=== PATIENT | female | born 1975 | race Caucasian/White ===

== ENCOUNTER → 2023-06-30 | Outpatient (CLI) | payer BC, SELFPAY ==
--- OUTSIDE RECORDS SUMMARY | 2023-06-30 12:05 | XMS RPT_ITS | CCD ---
Author Name Unknown Address [address] [place] [address] Organization [facility] Care Team Providers Care Chemical Test Engineer Name Role Phone PHYSICIAN, NONE Primary Care Physician Unavailab le PHYSICIAN, NONE Primary Care Unavailable KIMBERLY PINA MD Attending Unavailable PHYSICIAN, NONE Primary Care Unavailable KIMBERLY PINA MD Attending Unavailable PHYSICIAN, NONE Primary Care Unavailable KIMBERLY PINA MD Attending Unavailable KIMBERLY PINA MD Attending Unavailable PHYSICIAN, NONE Primary Care Unavailable PHYSICIAN, NONE Primary Care Unavailable KIMBERLY PINA MD Attending Unavailable PHYSICIAN, NONE Primary Care Unavailable KIMBERLY PINA MD Attending Unavailable Anuel Mcgovern MD Unavailable [facility]icians Primary Care Provider Unav ailable Rowena CREW CLERK - Kelsey MARK Unavailable Aleksandra CHAKRABORTY - Kylah MARK Unavailable Kylah Urias APRN, CNP Unavailable [phone] ANUEL MCGOVERN Attending Unavailable KIMBERLY PINA Referring Unavailable ANUEL MCGOVERN Attending Unavailable KELSEY RIVAS Attending Unavailable [facility] Primary Care Unavailable KYLAH BERG Attending Unavailable [facility] Primary Care Unavailable ANUEL MCGOVERN Admitting Unavailable ANUEL MCGOVERN Attending Unavailable [facility] Primary Care Unavailable Medications Current Medications Medication Drug Class(es) Dates Sig (Normalized) Sig (Original) acetaminophen 500 mg oral tablet (4 sources) Start: 01-06-2023 End: 01-16-2023 take 1 tablet by mouth every six hours as needed for pain acetaminophen (Tylenol Extra Strength) 500 MG tablet Take 1 tablet (500 mg) by mouth every 6 hours as needed for mild pain (1-3) for up to 10 days. 30 tablet 0 01/06/2023 01/16/2023 Active Completed/Discontinued Medications Medication Drug Class(es) Dates Sig (Normalized) Sig (Original) ALPRAZolam 0.25 mg disintegrating oral tablet (1 source) Benzodiazepine Start: 01-06-2023 End: 01-06-2023 ALPRAZolam (Xanax) disintegrating tablet 0.25 mg calcium chloride 0.0014 meq/ml / potassium chloride 0.004 meq/ml / sodium chloride 0.103 meq/ml / sodium lactate 0.028 meq/ml injectable solution (2 sources) Start: 01-06-2023 End: 01-06-2023 lactated ringers infusion 1 ml diphenhydrAMINE hydrochloride 50 mg/ml cartridge (1 source) Histamine-1 Receptor Antagonist Start: 01-06-2023 End: 01-06-2023 diphenhydrAMINE (BENADryl) injection 12.5 mg famotidine 20 mg oral tablet (1 source) Histamine-2 Receptor Antagonist Start: 01-06-2023 End: 01-06-2023 famotidine (Pepcid) tablet 20 mg 2 ml fentaNYL 0.05 mg/ml injection (2 sources) Opioid Agonist Start: 01-06-2023 End: 01-06-2023 fentaNYL (Sublimaze) injection 50 mcg Problems Problem Classification Problem Date Documented Date Episodic/Chronic Inflammatory diseases of female pelvic organs (1 source) Bacterial vaginosis; Translations: [Acute vaginitis] 03-30-2023 Episodic Menstrual disorders (4 sources) Menometrorrhagia; Translations: [Excessive and frequent menstruation with irregular cycle] Onset: 01-06-2023 01-06-2023 Chronic Other female genital disorders (2 sources) Abnormal uterine and vaginal bleeding, unspecified; Translations: [Abnormal uterine and vaginal bleeding, unspecified] Onset: 09-20-2022 Chronic Other female genital disorders (2 sources) Postcoital and contact bleeding; Translations: [Postcoital and contact bleeding] Onset: 04-27-2022 Chronic Other nervous system disorders (1 source) Postoperative pain ; Translations: [Other acute postprocedural pain] 01-06-2023 Episodic Other nervous system disorders (2 sources) Other acute postprocedural pain; Translations: [Other acute postprocedural pain] Onset: 01-06-2023 Episodic Residual codes; unclassified (1 source) Postoperative state; Translations: [Other specified postprocedural states] 01-19-2023 Episodic Residual codes; unclassified (2 sources) Other specified postprocedural states; Translations: [Other specified postprocedural states] Onset: 01-19-2023 Episodic Unclassified (2 sources) Post-op Visit; Translations: [Post-op Visit] Onset: 03-29-2023 Unclassified (2 sources) New Patient; Translations: [New Patient] Onset: 10-13-2022 Results Test Name Value Interpretation Reference Range Facil ity Vital Signs Date Time Vital Sign Value Performing Clinician Faci lity 01-19-2023 11:30-0400 Body height 172.7 cm Kylah Berg APRN [employer] Work Phone: [employer] 01-19-2023 11:30-0400 Body mass index (BMI) [Ratio] 45.31 kg/m2 Kylah Berg CREW CLERK - LOAN CLERK Work Phone: [employer] 01-19-2023 11:30-0400 Body weight 135.17 kg Kylah Aleksandra CREW CLERK - LOAN CLERK Work Phone: [employer] 01-19-2023 11:30-0400 Diastolic blood pressure 88 mm[Hg] Kylah Berg CREW CLERK - LOAN CLERK Work Phone: [employer] 01-19-2023 11:30-0400 Heart rate 101 /min Kylah Berg APRN - LOAN CLERK Work Phone: [employer] 01-19-2023 11:30-0400 Systolic blood pressure 127 mm[Hg] Kylahcatherine Berg CREW CLERK [employer] Work Phone: [employer] 01-06-2023 16:30-0400 Diastolic blood pressure 41 mm[Hg] Anuel Mcgovern MD Work Phone: [employer] 01-06-2023 16:30-0400 Heart rate 58 /min Anuel Mcgovern MD Work Phone: [employer] 01-06-2023 16:30-0400 SaO2% (BldA) [Mass fraction] 92 % Anuel Mcgovern MD Work Phone: [employer] 01-06-2023 16:30-0400 Systolic blood pressure 97 mm[Hg] Anuel Mcgovern MD Work Phone: [facility] 01-06-2023 13:45-0400 Respiratory rate 20 /min Anuel Mcgovern MD Work Phone: [facility] 01-06-2023 13:30-0400 Body temperature 97 [degF] Anuel Mcgovern MD Work Phone: [facility] [employer] 01-06-2023 10:21-0400 Body height 172.7 cm Anuel Mcgovern MD Work Phone: [facility] 01-06-2023 10:21-0400 Body mass index (BMI) [Ratio] 45.61 kg/m2 Anuel Mcgovern MD Work Phone: [facility] 01-06-2023 10:21-0400 Body weight 136.08 kg Anuel Mcgovern MD Work Phone: [facility] 09-20-2022 16:30-0400 Diastolic Blood Pressure Non-Invasive 71 1 KIMBERLY PINA MD [facility] 09-20-2022 16:30-0400 Heart rate 66 /min KIMBERLY PINA MD [facility] 09-20-2022 16:30-0400 Respiratory rate 14 /min KIMBERLY PINA MD [facility] 09-20-2022 16:30-0400 Systolic Blood Pressure Non-Invasive 124 1 KIMBERLY PINA MD [facility] 09-20-2022 16:01-0400 Diastolic Blood Pressure Non-Invasive 61 1 KIMBERLY PINA MD [facility] 09-20-2022 16:01-0400 Heart rate 62 /min KIMBERLY PINA MD [facility] 09-20-2022 16:01-0400 Respiratory rate 16 /min KIMBERLY PINA MD [facility] 09-20-2022 16:01-0400 Systolic Blood Pressure Non-Invasive 101 1 KIMBERLY PINA MD [facility] 09-20-2022 15:50-0400 Diastolic Blood Pressure Non-Invasive 65 1 KIMBERLY PINA MD [facility] 09-20-2022 15:50-0400 Heart rate 58 /min KIMBERLY PINA MD [facility] 09-20-2022 15:50-0400 Respiratory rate 13 /min KIMBERLY PINA MD [facility] 09-20-2022 15:50-0400 Systolic Blood Pressure Non-Invasive 97 1 KIMBERLY PINA MD [facility] 09-20-2022 14:49-0400 Body temperature 96.98 [degF] KIMBERLY PINA MD [facility] 09-20-2022 14:35-0400 Respiratory Rate - Anes 20 br/min KIMBERLY PINA MD [facility] 09-20-2022 14:30-0400 Respiratory Rate - Anes 20 br/min KIMBERLY PINA MD [facility] 09-20-2022 14:25-0400 Respiratory Rate - Anes 17 br/min KIMBERLY PINA MD [facility] 09-20-2022 14:05-0400 temperature 96.8 [degF] KIMBERLY PINA MD [facility] 09-20-2022 13:53-0400 temperature 96.8 [degF] KIMBERLY PINA MD [facility] 09-20-2022 11:29-0400 Blood Pressure Cuff Size KIMBERLY PINA MD [facility] 09-20-2022 11:29-0400 Blood Pressure Location KIMBERLY PINA MD [facility] 09-20-2022 11:29-0400 Blood Pressure Method KIMBERLY PINA MD [facility] 09-20-2022 11:29-0400 Body height 172.7 cm KIMBERLY PINA MD [facility] 09-20-2022 11:29-0400 Body temperature 98.42 [degF] KIMBERLY PINA MD [facility] 09-20-2022 11:29-0400 Body weight 122.7 kg KIMBERLY PINA MD [facility] 09-20-2022 11:29-0400 Body weight 41.14 kg/m2 KIMBERLY PINA MD [facility] 09-20-2022 11:29-0400 Heart rate 87 /min KIMBERLY PINA MD [facility] 09-16-2022 11:06-0400 Blood Pressure Location KIMBERLY PINA MD [facility] 09-16-2022 11:06-0400 Body height 172.7 cm KIMBERLY PINA MD [facility] 09-16-2022 11:06-0400 Body weight 134.1 kg KIMBERLY PINA MD [facility] 09-16-2022 11:06-0400 Body weight 44.96 kg/m2 KIMBERLY PINA MD [facility] 09-16-2022 11:06-0400 Diastolic Blood Pressure Non-Invasive 78 1 KIMBERLY PINA MD [facility] 09-16-2022 11:06-0400 Heart rate 82 /min KIMBERLY PINA MD [facility] 09-16-2022 11:06-0400 Respiratory rate 20 /min KIMBERLY PINA MD [facility] 09-16-2022 11:06-0400 Systolic Blood Pressure Non-Invasive 130 1 KIMBERLY PINA MD [facility] Encounters Encounter Date Encounter Type Care Provider Facility Start: 03-30-2023 Telephone encounter Kelsey mcdowell CREW CLERK - LOAN CLERK Work Phone: [facility] Start: 03-29-2023 End: 03-29-2023 ambulatory KELSEY RIVAS [facility] Start: 03-21-2023 Telephone encounter Kylah khan CREW CLERK - LOAN CLERK Work Phone: [facility] Start: 01-19-2023 End: 01-19-2023 ambulatory KYLAH BERG [facility] Start: 01-19-2023 End: 01-19-2023 Postop follow up visit related to original px Kylah Berg CREW CLERK - LOAN CLERK Work Phone: [facility] Procedures Date Procedure Procedure Detail Performing Clinician Start: 01-06-2023 End: 01-06-2023 Laps total hysterect 250 gm/< w/rmvl tube/ovary Anuel Mcgovern MD Work Phone: Start: 01-06-2023 ABO and Rh group [Ty pe] in Blood by Confirmatory method Anuel Mcgovern MD Work Phone: Start: 01-06-2023 Urine test visual color cmprsn meths Micha Davies DO Work Phone: Start: 01-06-2023 Blood count complete automated Anuel Mcgovern MD Work Phone: Start: 01-06-2023 Blood typing serologic abo Anuel Mcgovern MD Work Phone: Start: 05-23-2009 Appendectomy KIMBERLY OLIVA MD Hysteroscopy KIMBERLY PINA MD Tonsillectomy KIMBERLY Mcdowell Uterine leiomyoma (disorder) KIMBERLY PINA MD Plan of Treatment Date Care Activity Detail Author Start: 2027 Zoster Vaccines (1 of 2) Zoster Vaccines (1 of 2) [facility] Start: 03-23-2023 End: 03-23-2023 Patient encounter procedure 03/23/2023 11:30 AM EDT Office Visit [facility] [address] [place] [address] Kylah Berg, CREW CLERK - LOAN CLERK [address] [place], [place] [id number] [facility] Start: 01-21-2023 Influenza vaccination Influenza Vaccine (#1) [facility] Start: 05-04-2021 COVID-19 Vaccine (3 - Booster for Pfizer series) COVID-19 Vaccine (3 - Booster for Pfizer series) [facility] Start: 05-04-2021 COVID-19 Vaccine (5 - Pfizer series) COVID-19 Vaccine (5 - Pfizer series) [facility] Start: 2017 Screening for malignant neoplasm of breast Mammogram [facility] Start: 2007 Screening for malignant neoplasm of cervix [facility] Start: 1998 Screening for malignant neoplasm of cervix Pap Smear [facility] Start: 1996 DTaP/Tdap/Td Vaccines (1 - Tdap) DTaP/Tdap/Td Vaccines (1 - Tdap) [facility] Start: 1995 Diabetes mellitus screening Diabetes Screening [facility] Start: 1995 Hepatitis C screening Hepatitis C Screening [facility] Start: 1989 Depression Screening Depression Screening [facility] Start: 1978 MMR Vaccines (1 of 1 - Standard series) MMR Vaccines (1 of 1 - Standard series) [facility] Start: 1977 Hepatitis B Vaccines (1 of 3 - 3-dose series) Hepatitis B Vaccines (1 of 3 - 3-dose series) [facility] Start: 1977 HIV screening HIV Screening [facility] Start: 1977 Lipid panel Lipid Panel [facility] Start: 1977 Screening for malignant neoplasm of colon [facility] Tissue exam [facility] Work Phone: Payers Date Payer Category Payer Unknown ANTHEM [employer] S [employer]M [employer] [id number] 2023-Present [address] [place] [address] Commercial [id number] 2023 Unknown [id number] 2022 Private Health Insurance [id number] 2022 Private Health Insurance [id number] 2022 Private Health Insurance [id number] 2021 Private Health Insurance [id number] 1977 Unknown [id number] Unknown [id number] Unknown [id number] Unknown [id number] Unknown [id number] 1975 Unknown [id number] Social History Date Type Detail Facility Start: 10-13-2020 End: 10-12-2022 Never smoked tobacco (finding) [facility] Start: 10-12-2022 Tobacco use and exposure Smokeless tobacco non-user [facility] Start: 01-06-2023 End: 01-19-2023 Alcohol intake Current drinker of alcohol (finding) [facility] Start: 01-06-2023 End: 01-19-2023 History of Social function [facility] Start: 01-06-2023 End: 01-19-2023 Tobacco use panel [facility] Start: 12-31-2022 Alcohol Comment socially [facility] Start: 1975 Sex Assigned At Not on file S [facility] Start: 12-27-2022 End: 01-19-2023 Exposure to SARS-CoV-2 (event) Not sure [facility] Functional Status Date Assessment Result Facility 09-20-2022 Functional Status Activity Statu s ADL Up to chair [facility] 09-20-2022 Functional Status ID band on, Bed in low position, Wheels locked, Safety level maintained [facility] 09-20-2022 Functional Status Maintained [facility] 09-16-2022 Functional Status Sensory Deficits None A [facility] Mental Status Date Assessment Result Facility 09-20-2022 Mental Status Orientation Oriented x 4 [facility] 09-20-2022 Mental Status [facility] Clinical Notes 07-24-2021 to 03-30-2023 Telephone Encounter - MYLENE Ku CNP - 03/30/2023 2:37 PM ESTTelephone Encounter - MYLENE Ku CNP - 03/30/2023 2:37 PM ESTTelephone Encounter - Mj Guidry - 03/21/2023 11:06 AM EDT Note Date & Type Note Facility 03-30-2023 Telephone encounter Note Called patient with positive BV results. Prescribed Flagyl and sent to her pharmacy. Patient verbalizes understanding [facility] 03-30-2023 Miscellaneous Notes Called patient with positive BV results. Prescribed Flagyl and sent to her pharmacy. Patient verbalizes understanding documented in this encounter [facility] 03-22-2023 Telephone encounter Note Patient scheduled with kylah [facility] 03-22-2023 Miscellaneous Notes Patient scheduled with kylah Please have patient see kylah or me. thanks Pt states a little bit of pain on left side during intercourse. Bleeding during intercourse with intercourse being stopped. Pt states for a couple hours after intercourse pt wiped blood and had little blood on pads for that day only. Pt states just little cramping now. Patient calling stating that she experienced bleeding and a little pain after having intercourse for the first time since her total hysterectomy on January 06. Please call back and advise pt at [phone], thanks documented in this encounter [facility] 03-21-2023 Telephone encounter Note Please have patient see kylah or me. thanks [employer] Work Phone: 03-21-2023 Miscellaneous Notes Please have patient see kylah or me. thanks Pt states a little bit of pain on left side during intercourse. Bleeding during intercourse with intercourse being stopped. Pt states for a couple hours after intercourse pt wiped blood and had little blood on pads for that day only. Pt states just little cramping now. Patient calling stating that she experienced bleeding and a little pain after having intercourse for the first time since her total hysterectomy on January 06. Please call back and advise pt at [phone], thanks documented in this encounter [facility] 03-21-2023 Telephone encounter Note Pt states a little bit of pain on left side during intercourse. Bleeding during intercourse with intercourse being stopped. Pt states for a couple hours after intercourse pt wiped blood and had little blood on pads for that day only. Pt states just little cramping now. [facility] 03-21-2023 Telephone encounter Note Patient calling stating that she experienced bleeding and a little pain after having intercourse for the first time since her total hysterectomy on January 06. Please call back and advise pt at [phone], thanks [facility] 01-19-2023 History of Presen t illness Narrative @[email or web address]@ Chief Complaint Patient presents with Post-op Visit 2 weeks post op, slight discomfort when twisting History of the Present Illness: Shani Elias is a 47 y.o. who presents to the office for post-operative evaluation. She underwent ROBOTIC ASSISTED TOTAL LAPAROSCOPIC HYSTERECTOMY, BILATERAL SALPINGO-OOPHORECTOMY 29896 - KS LAPS TOTAL HYSTERECT 250 GM/< W/RMVL TUBE/OVARY on 01/06/23 and final pathology showed: Final Diagnosis UTERUS, CERVIX, BILATERAL FALLOPIAN TUBES AND OVARIES, HYSTERECTOMY WITH BILATERAL SALPINGO-OOPHORECTOMY: -CERVIX WITH BACKGROUND ACUTE AND CHRONIC CERVICITIS - PROLIFERATIVE ENDOMETRIUM -BENIGN BILATERAL FALLOPIAN TUBES AND OVARIES at 1642 Interval History Since her surgery she has been doing well and is without complaints. She denies fevers, chills, nausea, vomiting, bowel or bladder dysfunction. Pain is well controlled, not taking anything for pain. Has mild discomfort when twisting, not worsening. No drainage from incisions. No abnormal vaginal bleeding or discharge. Has mild bloating and flatus, LBM this morning, normal, taking prn Colace and Miralax. Has occasional hot flashes, did not have prior to surgery, no changes in mood. Pt would like work release with restrictions with driving, currently working from home. Past Medical History: Diagnosis Date Rash BLE's karma rash per patient Past Surgical History: Procedure Laterality Date APPENDECTOMY HYSTEROSCOPY LAPAROSCOPIC TOTAL HYSTERECTOMY (HISTORICAL) TONSILLECTOMY @MEDED@ No Known Allergies Review of Systems: As per the HPI, otherwise negative Vitals: 01/19/23 1130 BP: 127/88 Pulse: 101 Body mass index is 45.31 kg/m . Physical Exam Constitutional: Appearance: Normal appearance. HENT: Head: Normocephalic. Pulmonary: Effort: Pulmonary effort is normal. Abdominal: Palpations: Abdomen is soft. Comments: Incisions well approximated, negative for erythema, drainage, warmth, induration, signs of infection. Genitourinary: Comments: Deferred. Skin: General: Skin is warm and dry. Neurological: General: No focal deficit present. Mental Status: She is alert and oriented to person, place, and time. Psychiatric: Mood and Affect: Mood normal. Behavior: Behavior normal. Assessment/Plan: 47 y.o. s/p ROBOTIC ASSISTED TOTAL LAPAROSCOPIC HYSTERECTOMY, BILATERAL SALPINGO-OOPHORECTOMY 81909 - [place] LAPS TOTAL HYSTERECT 250 GM/< W/RMVL TUBE/OVARY for Excessive and frequent menstruation with irregular cycle. Doing well from a post-operative standpoint. Post-operative instructions reviewed. Patient was given a copy of the pathology report for her records. If hot flashes continue, pt to either call our office or primary level vial inspector and tester office for HRT. Pt denies estrogen positive cancers, liver disease, CHD, stroke, smoking, being on blood thinners, active or history of DVT or any type of clot or clotting disorder. Can try OTC Gas-X for bloating/flatus. Call office if no improvement. Work release/restrictions written, signed and given to pt. The patient had an opportunity to ask questions, all of which were answered to the best of my ability. She is in agreement with the above noted plan. Follow-up with primary CLARIFIER OPERATOR for annual well woman exams. documented in this encounter [facility] 01-06-2023 Note Formatting of this n ote might be different from the original. Discharge instructions gone over with pt and family. Verbalized understanding. All questions answered. [facility] 01-06-2023 Miscellaneous Notes Discharge instructions gone over with pt and family. Verbalized understanding. All questions answered. Pt ambulated to bathroom with steady gait. Unable to void. Date of surgery 01/06/2023 Preoperative diagnosis pelvic pain, mental menorrhagia, morbid obesity Postop diagnosis same Procedure robotic hysterectomy BSO Surgeon Mcgovern Anesthesia General Description of operation Patient identified brought to the operating room and after ministration of general anesthetic underwent abdominal perineal vaginal prep and draped in the low lithotomy position and using the yellowfin stirrups. The legs were carefully placed to avoid any nerve injury. Compression stockings on and running. Timeout was performed antibiotics given Alvarez catheter placed in the bladder manipulator and the uterus with a Christiano ring around the cervix. Using an 11 blade a small incision was made in the left upper quadrant using the Baidu system abdominal cavity is entered under direct vision insufflated with CO2 and under direct vision blunt da Aniya ports were placed across the abdomen. Trendelenburg was then used to displace about about the pelvis. The round ligaments were coagulated and divided the anterior and posterior leaves of the broad ligament the ureters identified the ovarian vessels were skeletonized above the ureters coagulated with the bipolar cautery and divided. The bladder was dissected inferiorly allowing the uterine vessels be skeletonized coagulated and divided as were the upper cardinal ligament down to the top of the ring. Colpotomy incision made on top of the ring and the uterus cervix tubes and ovaries removed out through the vagina the cuff was then closed using a running 0 V-Loc suture and the pelvis was copiously irrigated. Hemostasis was obtained Allis was removed from the abdominal cavity the da Aniya undocked the trocars removed and the defects and skin closed subcuticular 4-0 Monocryl and Dermabond. The Alvarez was removed 600 cc of clear urine and she was taken to cover room in stable condition by anesthesia with all sponges needles and instruments be reported as correct to the surgeon. Date: 01/06/2023 Location: [facility] OR Name: Shani Elias, : 1975, Diagnosis Pre-op Diagnosis * Excessive and frequent menstruation with irregular cycle [N92.1] Morbid obesity Post-op Diagnosis * Excessive and frequent menstruation with irregular cycle [N92.1] Procedures ROBOTIC ASSISTED TOTAL LAPAROSCOPIC HYSTERECTOMY, BILATERAL SALPINGO-OOPHORECTOMY 32979 - [place] LAPS TOTAL HYSTERECT 250 GM/< W/RMVL TUBE/OVARY Surgeons * Anuel Mcgovern - Primary Procedure Summary Anesthesia: General ASA: III Estimated Blood Loss: 30 mL Drains: Urethral Catheter 16 Fr. (Active) Specimens ID Source Type Tests Collected By Collected At Frozen? Priority Lab ID 1 Uterus Tissue TISSUE EXAM Anuel Mcgovern MD 01/06/23 1255 Description: UTERUS, CERVIX, BILATERAL TUBES AND OVARIES Comment: 129 GRAMS Staff: Color Making Supervisor: Tania Vargas RN Scrub Person: Gil Guzmanadiel Findings: same Complications: None; patient tolerated the procedure well. Specimens Collected: Order Name Source Comment Collection Info Order Time CBC (HEMOGRAM) Blood, Venous Collected By: Nabila Smiley RN 01/06/2023 10:14 AM BLOOD TYPE AND SCREEN GEL Blood, Venous HOLD. Specimen is valid for 3 days - nurse to verify valid specimen Collected By: Nabila Smiley RN 01/06/2023 10:14 AM HCG QUALITATIVE URINE Urine, Clean Catch Discontinue this order if: 1. patient is older than 55 years old 2. has had a prior hysterectomy 3. today's surgery is for treatment of known or suspected ectopic or loss. 4. patient has a known intrauterine but this is a needed surgery. 01/06/2023 10:14 AM POTASSIUM WITH MG REFLEX For patients on dialysis to draw potassium day of surgery 01/06/2023 10:14 AM PROTHROMBIN TIME If patient on coumadin within 4 days prior. 01/06/2023 10:14 AM TISSUE EXAM Uterus Pre-op diagnosis: Excessive and frequent menstruation with irregular cycle [N92.1] Collected By: Anuel Mcgovern MD 01/06/2023 12:55 PM Wound Class: Class II: Clean-Contaminated Blood Products: None Prophylactic Antibiotics: Procedure appropriate prophylactic antibiotic(s) given within 1 hour of surgical incision (two hours if receiving Vancomycin or flouroquinolone) documented in this encounter [facility] 01-06-2023 Note Patient: Shani martinez Procedure Summary Date: 01/06/23 Room / Location: [address] Operating Room Anesthesia Start: 1208 Anesthesia Stop: Procedure: ROBOTIC ASSISTED TOTAL LAPAROSCOPIC HYSTERECTOMY, BILATERAL SALPINGO-OOPHORECTOMY (Bilateral: Abdomen) Diagnosis: Excessive and frequent menstruation with irregular cycle (Excessive and frequent menstruation with irregular cycle [N92.1]) Surgeons: Anuel Mcgovern MD Responsible Provider: Caden Darnell CRNA Anesthesia Type: general, regional ASA Status: 3 Anesthesia Type: general, regional Vitals Value Taken Time BP 136/79 01/06/23 1330 Temp 36.1 ?C (97 ?F) 01/06/23 1330 Pulse 75 01/06/23 1332 Resp 18 01/06/23 1330 SpO2 99 % 01/06/23 1332 Vitals shown include unvalidated device data. Anesthesia Post Evaluation Patient location during evaluation: PACU Patient participation: complete - patient participated Level of consciousness: sleepy but conscious Pain management: satisfactory to patient Airway patency: patent Dental Injury: no Cardiovascular status: acceptable, blood pressure returned to baseline and hemodynamically stable Respiratory status: acceptable and spontaneous ventilation Hydration status: euvolemic Nausea/Vomiting: controlled No notable events documented. Patient can be discharged once all PACU criteria has been met. [facility] 01-06-2023 Note Patient: Shani martinez Procedure Summary Date: 01/06/23 Room / Location: [address] Operating Room Anesthesia Start: 1208 Anesthesia Stop: Procedure: ROBOTIC ASSISTED TOTAL LAPAROSCOPIC HYSTERECTOMY, BILATERAL SALPINGO-OOPHORECTOMY (Bilateral: Abdomen) Diagnosis: Excessive and frequent menstruation with irregular cycle (Excessive and frequent menstruation with irregular cycle [N92.1]) Surgeons: Anuel Mcgovern MD Responsible Provider: Caden Darnell CRNA Anesthesia Type: general, regional ASA Status: 3 Anesthesia Type: general, regional Vitals Value Taken Time BP 136/79 01/06/23 1330 Temp 36.1 ?C (97 ?F) 01/06/23 1330 Pulse 87 01/06/23 1330 Resp 18 01/06/23 1330 SpO2 100 % 01/06/23 1330 Vitals shown include unvalidated device data. Anesthesia Post Evaluation Patient location during evaluation: PACU Patient participation: complete - patient participated Level of consciousness: sleepy but conscious Pain score: 0 Pain management: satisfactory to patient Multimodal analgesia pain management approach Airway patency: patent Two or more strategies used to mitigate risk of obstructive sleep apnea Cardiovascular status: acceptable and hemodynamically stable Respiratory status: acceptable, face mask and oral airway Hydration status: acceptable No notable events documented. MIPS #[id number] PONV Patient received an inhalational anesthetic (4554F) Patient exhibits three or more risk factors for PONV (4556F) Patient received at leaset 2 prophylactic Rx PONV anti-emtic agents of different classes preop and/or intraop (G9775) MIPS # 424 Perioperative Temperature Management Anesthesia time was 60 minutes or longer (4255F) Anesthesai administered was General (inhalational or TIVA) or Neuraxial block (X0424) At least one body temperature greater than 95.8F/35.5C achieved within the 30 mins immediately prior to or the 15 minutes immediately following anesthesia end time (G9771) MIPS #477 Multimodal Pain Management Not emergent case Patient was administered multimodal pain management (two or more drugs and/or interventions excluding systemic opioids) in the periopeartive period occurring at some time between 6 hours prior to anesthesia start time until discharged from PACU (G2148) MIPS #404 Anesthesiology Smoking Abstinence The patient is not a current smoker (e.g. cigarette, cigar, pipe, e-cigarette/vaping/marijuana) If no stop here (G9644) I completed my handoff to the receiving clinician during which we: 1. Identified the patient 2. Identified the responsible provider 3. Reviewed the pertinent medical history 4. Discussed the surgical course 5. Reviewed intra-op anesthesia management and issues during anesthesia 6. Set expectations for post-procedure period 7. Allowed opportunity for questions and acknowledgement of understanding. [facility] 01-06-2023 Note Formatting of this n ote might be different from the original. Pt ambulated to bathroom with steady gait. Unable to void. [facility] 01-06-2023 Note Airway Date/Time: 01/06/2023 12:15 PM Urgency: scheduled Airway not difficult General Information and Staff Patient location during procedure: Procedural Resident/TIMBER WATCHMAN: Caden Darnell CRNA Performed: TIMBER WATCHMAN Performed by: Caden Darnell CRNA Authorized by: Caden Darnell CRNA Indications and Patient Condition Indications for airway management: anesthesia Sedation level: Asleep Preoxygenated: yes Patient position: sniffing MILS maintained throughout Mask difficulty assessment: 1 - vent by mask Final Airway Details Final airway type: endotracheal airway Successful airway: ETT Cuffed: yes Successful intubation technique: direct laryngoscopy Blade: Klever Blade size: #3 ETT size (mm): 7.0 Cormack-Lehane Classification: grade IIb - view of arytenoids or posterior of glottis only Placement verified by: chest auscultation and capnometry Measured from: lips ETT to lips (cm): 22 Number of attempts at approach: 1 [facility] 01-06-2023 Note Peripheral Block Time Out: 01/06/2023 12:11 PM Patient location during procedure: Procedural Start time: 01/06/2023 12:11 PM End time: 01/06/2023 12:15 PM Reason for block: at surgeon's request and post-op pain management Staffing Performed: TIMBER WATCHMAN Resident/TIMBER WATCHMAN: Erik Arriaga APRN - TIMBER WATCHMAN Preanesthetic Checklist Completed: patient identified, IV checked, site marked, risks and benefits discussed, surgical consent, monitors and equipment checked, pre-op evaluation and timeout performed Region: [place] Primary: TAP (Bupivacaine 0.375%/ Epi 1:200,000/ Dex 0.1mg/mL 40ml divided evenly bilateral) Secondary: Upper rectus (Bupivacaine 0.375%/ Epi 1:200,000/ Dex 0.1mg/mL 20ml divided evenly bilateral) Peripheral Block Patient position: supine Prep: ChloraPrep Patient monitoring: heart rate, state inspector, continuous pulse ox and continuous capnometry O2: ETT/LMA Laterality: bilateral Injection technique: single-shot Guidance: ultrasound guided -image retained in chart, tip of the needle identified by ultraound during injection. Needle Needle: 21G X 110 mm Additional Notes 01/06/2023 12:11 PM Assessment Injection assessment: negative aspiration for heme, no paresthesia on injection and incremental injection Heart rate change: no Slow fractionated injection: yes Required Documentation: Relevant anatomy identified (Nerves, Vessels, Muscles), Negative for blood on aspiration, Local anesthetic injected incrementally with intermittent aspiration every 5 mL, Normal resistance with injection, No EKG changes noted, No symptoms of toxicity, Local anesthetic spread visualized around nerves or plane. and Local anesthetic injected without difficultyMedications qqcEINZCmojbj-yuayytxfmuc-epvdgrm rine (TAP) syringe - Injection 60 mL - 01/06/2023 12:11:00 PM [facility] 01-06-2023 Note HPI: Shani Elias is a pleasant 47 y.o. female who presents in consultation from Dr. Pina for further evaluation and management of abnormal uterine bleeding. She initiallypresented with complaints of heavy menstrual cycles. 4 months of vag bleeding, every day, had amenorrhea for several months then heavy bleeding. Patient states that up to about 2 years ago she had regular menstrual cycles. Then about 2 years ago had several episodes of amenorrhea followed by very heavy vaginal bleeding. She has been bleeding continuously for about 4 months. Sometimes small clots, sometimes spotting. It is associated with some cramping. Passing clots with cramping. Going thru a pad frequently Underwent biopsy in 2021 that was negative. Ultrasound showed an 11 cm uterus. Patient was unable to tolerate progesterone therapy. Patient underwent colposcopy, biopsies and endometrial curettings. ECC was negative, cervical biopsy showed mild dysplasia, endometrial biopsy showed polyps but no evidence of malignancy. 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 Medical History No past medical history on file. Mom had hyst at young age. Surgical History Past Surgical History: Procedure Laterality Date APPENDECTOMY HYSTEROSCOPY Family History Family History Problem Relation Name Age of Onset Colon cancer Neg Hx Breast cancer Neg Hx Ovarian cancer Neg Hx Social History Socioeconomic History Marital status: Unknown Tobacco Use Smoking status: Never Smokeless tobacco: Never Current Medications Current Outpatient Medications Medication Sig Dispense Refill acetaminophen (Tylenol) 325 MG capsule Take by mouth. ibuprofen 600 MG tablet Take 600 mg by mouth. No current facility-administered medications for this visit. Allergies as of 10/13/2022 (No Known Allergies) Review of Systems: Review of Systems Genitourinary: Positive for menstrual problem, pelvic pain and vaginal bleeding. BP 138/84 Pulse 66 Ht 1.727 m (5' 8 ) Wt (!) 137 kg (301 lb 9.6 oz) BMI 45.86 kg/m? Physical Exam: Physical Exam Vitals and nursing note reviewed. Exam conducted with a java support engineer present. Constitutional: Appearance: She is obese. Cardiovascular: Rate and Rhythm: Normal rate and regular rhythm. Pulmonary: Effort: Pulmonary effort is normal. Breath sounds: Normal breath sounds. Abdominal: General: Abdomen is flat. Palpations: Abdomen is soft. Genitourinary: General: Normal vulva. Labia: Right: No lesion. Left: No lesion. Urethra: No urethral lesion. Vagina: Normal. Cervix: Normal. Uterus: Enlarged. Not deviated, not fixed and not tender. Adnexa: Right adnexa normal and left adnexa normal. Skin: General: Skin is warm and dry. Neurological: Mental Status: She is alert. Psychiatric: Mood and Affect: Mood normal. Behavior: Behavior normal. Several pages of reports in the EMR been reviewed to include office notes, pathology reports ultrasound reports from referring physician. ASSESSMENT/PLAN: Diagnosis Plan 1. Menorrhagia with irregular cycle 2. Morbid obesity (HCC) Unable to tolerate hormonal therapy. We did discuss options to include Mirena IUD, endometrial ablation, or hysterectomy. The patient states that the bleeding is interfering with her lifestyle and she would like a definitive treatment. It is also interfering with her ability to do her job. Discussed proceeding with robotic hysterectomy with BSO. We discussed the pros and cons of ovarian preservation. I did discuss the risk of major abdominal surgery to include bleeding infection and damage to other organs. [facility] 01-06-2023 Note H&P reviewed. The pa tient was examined and there are no changes to the H&P. [facility] 01-06-2023 Hospital Discharg e instructions Freda Cool DO - 01/06/2023 1:10 PM EDT Please follow your post operative care instructions given to you by your Gynecologic Oncologist's office at your pre operative visit. Please call the office with questions or concerns and be sure to follow up at your scheduled post operative visit. The following attachments cannot be sent through Care Everywhere.Hysterectomy Discharge Instructions ([place]i)documented in this encounter [facility] 01-06-2023 Note Patient: Shani martinez Procedure Information Date/Time: 01/06/23 1130 Procedure: ROBOTIC ASSISTED TOTAL LAPAROSCOPIC HYSTERECTOMY, BILATERAL SALPINGO-OOPHORECTOMY (Bilateral: Abdomen) Location: [facility] OR [address] [place] [address] Operating Room Surgeons: Anuel Mcgovern MD Relevant Problems No relevant active problems Past Medical History: Past Medical History: No date: Rash Comment: BLE's karma rash per patient Past Surgical History: Past Surgical History: No date: APPENDECTOMY No date: HYSTEROSCOPY No date: TONSILLECTOMY Social History: TOBACCO: reports that she has never smoked. She has never used smokeless tobacco. ETOH: reports current alcohol use. Social History Substance and Sexual Activity Drug Use Never Family History: Family History Problem Relation Name Age of Onset ? Colon cancer Neg Hx ? Breast cancer Neg Hx ? Ovarian cancer Neg Hx Screening: unknown Clinical information reviewed: Tobacco Allergies Meds Med Hx Surg Hx OB Status Fam Hx Soc Hx Physical Exam Airway Mallampati: III TM distance: >3 FB Neck ROM: full Mouth Open: normal Cardiovascular Dental Pulmonary Abdominal Anesthesia Plan patient is NPO appropriate Any family history or previous problems with anesthesia no ASA 3 general and regional Any family history or previous problems with anesthesia no The patient is not a current smoker. YAMILETH Screening Labs: Lab Results Component Value Date WBC 6.5 01/06/2023 HGB 13.4 01/06/2023 HCT 40.6 01/06/2023 MCV 85.0 01/06/2023 PLT 154 01/06/2023 No results found for: NA, K, CL, CO2, BUN, CREATININE, GLUCOSE, CALCIUM, PROT, BILIRUBINFL, ALKPHOS, AST, ALT, EGFR, GLOB Pain Score: Scheduled No echocardiogram results found for the past 14 days No results found for this or any previous visit. [facility] 01-06-2023 Note Formatting of this n ote might be different from the original. Date of surgery 01/06/2023 Preoperative diagnosis pelvic pain, mental menorrhagia, morbid obesity Postop diagnosis same Procedure robotic hysterectomy BSO Surgeon Froilan Anesthesia General Description of operation Patient identified brought to the operating room and after ministration of general anesthetic underwent abdominal perineal vaginal prep and draped in the low lithotomy position and using the yellowfin stirrups. The legs were carefully placed to avoid any nerve injury. Compression stockings on and running. Timeout was performed antibiotics given Alvarez catheter placed in the bladder manipulator and the uterus with a Christiano ring around the cervix. Using an 11 blade a small incision was made in the left upper quadrant using the Baidu system abdominal cavity is entered under direct vision insufflated with CO2 and under direct vision blunt da Aniya ports were placed across the abdomen. Trendelenburg was then used to displace about about the pelvis. The round ligaments were coagulated and divided the anterior and posterior leaves of the broad ligament the ureters identified the ovarian vessels were skeletonized above the ureters coagulated with the bipolar cautery and divided. The bladder was dissected inferiorly allowing the uterine vessels be skeletonized coagulated and divided as were the upper cardinal ligament down to the top of the ring. Colpotomy incision made on top of the ring and the uterus cervix tubes and ovaries removed out through the vagina the cuff was then closed using a running 0 V-Loc suture and the pelvis was copiously irrigated. Hemostasis was obtained Allis was removed from the abdominal cavity the da Aniya undocked the trocars removed and the defects and skin closed subcuticular 4-0 Monocryl and Dermabond. The Alvarez was removed 600 cc of clear urine and she was taken to cover room in stable condition by anesthesia with all sponges needles and instruments be reported as correct to the surgeon. [facility] 01-06-2023 Note Formatting of this n ote is different from the original. Date: 01/06/2023 Location: [facility] OR Name: Shani Elias, : 1975, Diagnosis Pre-op Diagnosis * Excessive and frequent menstruation with irregular cycle [N92.1] Morbid obesity Post-op Diagnosis * Excessive and frequent menstruation with irregular cycle [N92.1] Procedures ROBOTIC ASSISTED TOTAL LAPAROSCOPIC HYSTERECTOMY, BILATERAL SALPINGO-OOPHORECTOMY 04435 - [place] LAPS TOTAL HYSTERECT 250 GM/< W/RMVL TUBE/OVARY Surgeons * Anuel Mcgovern - Primary Procedure Summary Anesthesia: General ASA: III Estimated Blood Loss: 30 mL Drains: Urethral Catheter 16 Fr. (Active) Specimens ID Source Type Tests Collected By Collected At Frozen? Priority Lab ID 1 Uterus Tissue TISSUE EXAM Anuel Mcgovern MD 01/06/23 1255 Description: UTERUS, CERVIX, BILATERAL TUBES AND OVARIES Comment: 129 GRAMS Staff: Color Making Supervisor: Tania Vargas RN Scrub Person: Gil Balderrama Findings: same Complications: None; patient tolerated the procedure well. Specimens Collected: Order Name Source Comment Collection Info Order Time CBC (HEMOGRAM) Blood, Venous Collected By: Nabila Smiley RN 01/06/2023 10:14 AM BLOOD TYPE AND SCREEN GEL Blood, Venous HOLD. Specimen is valid for 3 days - nurse to verify valid specimen Collected By: Nabila Smiley RN 01/06/2023 10:14 AM HCG QUALITATIVE URINE Urine, Clean Catch Discontinue this order if: 1. patient is older than 55 years old 2. has had a prior hysterectomy 3. today's surgery is for treatment of known or suspected ectopic or loss. 4. patient has a known intrauterine but this is a needed surgery. 01/06/2023 10:14 AM POTASSIUM WITH MG REFLEX For patients on dialysis to draw potassium day of surgery 01/06/2023 10:14 AM PROTHROMBIN TIME If patient on coumadin within 4 days prior. 01/06/2023 10:14 AM TISSUE EXAM Uterus Pre-op diagnosis: Excessive and frequent menstruation with irregular cycle [N92.1] Collected By: Anuel Mcgovern MD 01/06/2023 12:55 PM Wound Class: Class II: Clean-Contaminated Blood Products: None Prophylactic Antibiotics: Procedure appropriate prophylactic antibiotic(s) given within 1 hour of surgical incision (two hours if receiving Vancomycin or flouroquinolone) [facility] 01-06-2023 History and physical note HPI: Shani Elias is a pleasant 47 y.o. female who presents in consultation from Dr. Pina for further evaluation and management of abnormal uterine bleeding. She initiallypresented with complaints of heavy menstrual cycles. 4 months of vag bleeding, every day, had amenorrhea for several months then heavy bleeding. Patient states that up to about 2 years ago she had regular menstrual cycles. Then about 2 years ago had several episodes of amenorrhea followed by very heavy vaginal bleeding. She has been bleeding continuously for about 4 months. Sometimes small clots, sometimes spotting. It is associated with some cramping. Passing clots with cramping. Going thru a pad frequently Underwent biopsy in 2021 that was negative. Ultrasound showed an 11 cm uterus. Patient was unable to tolerate progesterone therapy. Patient underwent colposcopy, biopsies and endometrial curettings. ECC was negative, cervical biopsy showed mild dysplasia, endometrial biopsy showed polyps but no evidence of malignancy. 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 Medical History No past medical history on file. Mom had hyst at young age. Surgical History Past Surgical History: Procedure Laterality Date APPENDECTOMY HYSTEROSCOPY Family History Family History Problem Relation Name Age of Onset Colon cancer Neg Hx Breast cancer Neg Hx Ovarian cancer Neg Hx Social History Socioeconomic History Marital status: Unknown Tobacco Use Smoking status: Never Smokeless tobacco: Never Current Medications Current Outpatient Medications Medication Sig Dispense Refill acetaminophen (Tylenol) 325 MG capsule Take by mouth. ibuprofen 600 MG tablet Take 600 mg by mouth. No current facility-administered medications for this visit. Allergies as of 10/13/2022 (No Known Allergies) Review of Systems: Review of Systems Genitourinary: Positive for menstrual problem, pelvic pain and vaginal bleeding. BP 138/84 Pulse 66 Ht 1.727 m (5' 8 ) Wt (!) 137 kg (301 lb 9.6 oz) BMI 45.86 kg/m Physical Exam: Physical Exam Vitals and nursing note reviewed. Exam conducted with a java support engineer present. Constitutional: Appearance: She is obese. Cardiovascular: Rate and Rhythm: Normal rate and regular rhythm. Pulmonary: Effort: Pulmonary effort is normal. Breath sounds: Normal breath sounds. Abdominal: General: Abdomen is flat. Palpations: Abdomen is soft. Genitourinary: General: Normal vulva. Labia: Right: No lesion. Left: No lesion. Urethra: No urethral lesion. Vagina: Normal. Cervix: Normal. Uterus: Enlarged. Not deviated, not fixed and not tender. Adnexa: Right adnexa normal and left adnexa normal. Skin: General: Skin is warm and dry. Neurological: Mental Status: She is alert. Psychiatric: Mood and Affect: Mood normal. Behavior: Behavior normal. Several pages of reports in the EMR been reviewed to include office notes, pathology reports ultrasound reports from referring physician. ASSESSMENT/PLAN: Diagnosis Plan 1. Menorrhagia with irregular cycle 2. Morbid obesity (HCC) Unable to tolerate hormonal therapy. We did discuss options to include Mirena IUD, endometrial ablation, or hysterectomy. The patient states that the bleeding is interfering with her lifestyle and she would like a definitive treatment. It is also interfering with her ability to do her job. Discussed proceeding with robotic hysterectomy with BSO. We discussed the pros and cons of ovarian preservation. I did discuss the risk of major abdominal surgery to include bleeding infection and damage to other organs. [facility] 01-06-2023 History and physical note HPI: Shani Elias is a pleasant 47 y.o. female who presents in consultation from Dr. Pina for further evaluation and management of abnormal uterine bleeding. She initiallypresented with complaints of heavy menstrual cycles. 4 months of vag bleeding, every day, had amenorrhea for several months then heavy bleeding. Patient states that up to about 2 years ago she had regular menstrual cycles. Then about 2 years ago had several episodes of amenorrhea followed by very heavy vaginal bleeding. She has been bleeding continuously for about 4 months. Sometimes small clots, sometimes spotting. It is associated with some cramping. Passing clots with cramping. Going thru a pad frequently Underwent biopsy in 2021 that was negative. Ultrasound showed an 11 cm uterus. Patient was unable to tolerate progesterone therapy. Patient underwent colposcopy, biopsies and endometrial curettings. ECC was negative, cervical biopsy showed mild dysplasia, endometrial biopsy showed polyps but no evidence of malignancy. 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 Medical History No past medical history on file. Mom had hyst at young age. Surgical History Past Surgical History: Procedure Laterality Date APPENDECTOMY HYSTEROSCOPY Family History Family History Problem Relation Name Age of Onset Colon cancer Neg Hx Breast cancer Neg Hx Ovarian cancer Neg Hx Social History Socioeconomic History Marital status: Unknown Tobacco Use Smoking status: Never Smokeless tobacco: Never Current Medications Current Outpatient Medications Medication Sig Dispense Refill acetaminophen (Tylenol) 325 MG capsule Take by mouth. ibuprofen 600 MG tablet Take 600 mg by mouth. No current facility-administered medications for this visit. Allergies as of 10/13/2022 (No Known Allergies) Review of Systems: Review of Systems Genitourinary: Positive for menstrual problem, pelvic pain and vaginal bleeding. BP 138/84 Pulse 66 Ht 1.727 m (5' 8 ) Wt (!) 137 kg (301 lb 9.6 oz) BMI 45.86 kg/m Physical Exam: Physical Exam Vitals and nursing note reviewed. Exam conducted with a java support engineer present. Constitutional: Appearance: She is obese. Cardiovascular: Rate and Rhythm: Normal rate and regular rhythm. Pulmonary: Effort: Pulmonary effort is normal. Breath sounds: Normal breath sounds. Abdominal: General: Abdomen is flat. Palpations: Abdomen is soft. Genitourinary: General: Normal vulva. Labia: Right: No lesion. Left: No lesion. Urethra: No urethral lesion. Vagina: Normal. Cervix: Normal. Uterus: Enlarged. Not deviated, not fixed and not tender. Adnexa: Right adnexa normal and left adnexa normal. Skin: General: Skin is warm and dry. Neurological: Mental Status: She is alert. Psychiatric: Mood and Affect: Mood normal. Behavior: Behavior normal. Several pages of reports in the EMR been reviewed to include office notes, pathology reports ultrasound reports from referring physician. ASSESSMENT/PLAN: Diagnosis Plan 1. Menorrhagia with irregular cycle 2. Morbid obesity (HCC) Unable to tolerate hormonal therapy. We did discuss options to include Mirena IUD, endometrial ablation, or hysterectomy. The patient states that the bleeding is interfering with her lifestyle and she would like a definitive treatment. It is also interfering with her ability to do her job. Discussed proceeding with robotic hysterectomy with BSO. We discussed the pros and cons of ovarian preservation. I did discuss the risk of major abdominal surgery to include bleeding infection and damage to other organs. H&P reviewed. The patient was examined and there are no changes to the H&P. Source Note - Anuel Mcgovern MD - 01/06/2023 11:53 AM EDT HPI: Shani Elias is a pleasant 47 y.o. female who presents in consultation from Dr. Pina for further evaluation and management of abnormal uterine bleeding. She initiallypresented with complaints of heavy menstrual cycles. 4 months of vag bleeding, every day, had amenorrhea for several months then heavy bleeding. Patient states that up to about 2 years ago she had regular menstrual cycles. Then about 2 years ago had several episodes of amenorrhea followed by very heavy vaginal bleeding. She has been bleeding continuously for about 4 months. Sometimes small clots, sometimes spotting. It is associated with some cramping. Passing clots with cramping. Going thru a pad frequently Underwent biopsy in 2021 that was negative. Ultrasound showed an 11 cm uterus. Patient was unable to tolerate progesterone therapy. Patient underwent colposcopy, biopsies and endometrial curettings. ECC was negative, cervical biopsy showed mild dysplasia, endometrial biopsy showed polyps but no evidence of malignancy. 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 Medical History No past medical history on file. Mom had hyst at young age. Surgical History Past Surgical History: Procedure Laterality Date APPENDECTOMY HYSTEROSCOPY Family History Family History Problem Relation Name Age of Onset Colon cancer Neg Hx Breast cancer Neg Hx Ovarian cancer Neg Hx Social History Socioeconomic History Marital status: Unknown Tobacco Use Smoking status: Never Smokeless tobacco: Never Current Medications Current Outpatient Medications Medication Sig Dispense Refill acetaminophen (Tylenol) 325 MG capsule Take by mouth. ibuprofen 600 MG tablet Take 600 mg by mouth. No current facility-administered medications for this visit. Allergies as of 10/13/2022 (No Known Allergies) Review of Systems: Review of Systems Genitourinary: Positive for menstrual problem, pelvic pain and vaginal bleeding. BP 138/84 Pulse 66 Ht 1.727 m (5' 8 ) Wt (!) 137 kg (301 lb 9.6 oz) BMI 45.86 kg/m Physical Exam: Physical Exam Vitals and nursing note reviewed. Exam conducted with a java support engineer present. Constitutional: Appearance: She is obese. Cardiovascular: Rate and Rhythm: Normal rate and regular rhythm. Pulmonary: Effort: Pulmonary effort is normal. Breath sounds: Normal breath sounds. Abdominal: General: Abdomen is flat. Palpations: Abdomen is soft. Genitourinary: General: Normal vulva. Labia: Right: No lesion. Left: No lesion. Urethra: No urethral lesion. Vagina: Normal. Cervix: Normal. Uterus: Enlarged. Not deviated, not fixed and not tender. Adnexa: Right adnexa normal and left adnexa normal. Skin: General: Skin is warm and dry. Neurological: Mental Status: She is alert. Psychiatric: Mood and Affect: Mood normal. Behavior: Behavior normal. Several pages of reports in the EMR been reviewed to include office notes, pathology reports ultrasound reports from referring physician. ASSESSMENT/PLAN: Diagnosis Plan 1. Menorrhagia with irregular cycle 2. Morbid obesity (HCC) Unable to tolerate hormonal therapy. We did discuss options to include Mirena IUD, endometrial ablation, or hysterectomy. The patient states that the bleeding is interfering with her lifestyle and she would like a definitive treatment. It is also interfering with her ability to do her job. Discussed proceeding with robotic hysterectomy with BSO. We discussed the pros and cons of ovarian preservation. I did discuss the risk of major abdominal surgery to include bleeding infection and damage to other organs. documented in this encounter [facility] 01-06-2023 Attending History and physical note H&P reviewed. The patient was examined and there are no changes to the H&P. Source Note - Anuel Mcgovern MD - 01/06/2023 11:53 AM EDT HPI: Shani Elias is a pleasant 47 y.o. female who presents in consultation from Dr. Pina for further evaluation and management of abnormal uterine bleeding. She initiallypresented with complaints of heavy menstrual cycles. 4 months of vag bleeding, every day, had amenorrhea for several months then heavy bleeding. Patient states that up to about 2 years ago she had regular menstrual cycles. Then about 2 years ago had several episodes of amenorrhea followed by very heavy vaginal bleeding. She has been bleeding continuously for about 4 months. Sometimes small clots, sometimes spotting. It is associated with some cramping. Passing clots with cramping. Going thru a pad frequently Underwent biopsy in 2021 that was negative. Ultrasound showed an 11 cm uterus. Patient was unable to tolerate progesterone therapy. Patient underwent colposcopy, biopsies and endometrial curettings. ECC was negative, cervical biopsy showed mild dysplasia, endometrial biopsy showed polyps but no evidence of malignancy. 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 Medical History No past medical history on file. Mom had hyst at young age. Surgical History Past Surgical History: Procedure Laterality Date APPENDECTOMY HYSTEROSCOPY Family History Family History Problem Relation Name Age of Onset Colon cancer Neg Hx Breast cancer Neg Hx Ovarian cancer Neg Hx Social History Socioeconomic History Marital status: Unknown Tobacco Use Smoking status: Never Smokeless tobacco: Never Current Medications Current Outpatient Medications Medication Sig Dispense Refill acetaminophen (Tylenol) 325 MG capsule Take by mouth. ibuprofen 600 MG tablet Take 600 mg by mouth. No current facility-administered medications for this visit. Allergies as of 10/13/2022 (No Known Allergies) Review of Systems: Review of Systems Genitourinary: Positive for menstrual problem, pelvic pain and vaginal bleeding. BP 138/84 Pulse 66 Ht 1.727 m (5' 8 ) Wt (!) 137 kg (301 lb 9.6 oz) BMI 45.86 kg/m Physical Exam: Physical Exam Vitals and nursing note reviewed. Exam conducted with a java support engineer present. Constitutional: Appearance: She is obese. Cardiovascular: Rate and Rhythm: Normal rate and regular rhythm. Pulmonary: Effort: Pulmonary effort is normal. Breath sounds: Normal breath sounds. Abdominal: General: Abdomen is flat. Palpations: Abdomen is soft. Genitourinary: General: Normal vulva. Labia: Right: No lesion. Left: No lesion. Urethra: No urethral lesion. Vagina: Normal. Cervix: Normal. Uterus: Enlarged. Not deviated, not fixed and not tender. Adnexa: Right adnexa normal and left adnexa normal. Skin: General: Skin is warm and dry. Neurological: Mental Status: She is alert. Psychiatric: Mood and Affect: Mood normal. Behavior: Behavior normal. Several pages of reports in the EMR been reviewed to include office notes, pathology reports ultrasound reports from referring physician. ASSESSMENT/PLAN: Diagnosis Plan 1. Menorrhagia with irregular cycle 2. Morbid obesity (HCC) Unable to tolerate hormonal therapy. We did discuss options to include Mirena IUD, endometrial ablation, or hysterectomy. The patient states that the bleeding is interfering with her lifestyle and she would like a definitive treatment. It is also interfering with her ability to do her job. Discussed proceeding with robotic hysterectomy with BSO. We discussed the pros and cons of ovarian preservation. I did discuss the risk of major abdominal surgery to include bleeding infection and damage to other organs. [facility] 12-30-2022 Note Patient: Shani martinez Procedure Information Date/Time: 12/30/22 7012 Scheduled providers: Kristen Meyers RN Procedure: PAT OPTIMIZATION CALL Location: [facility] Pre-Admit Testing Relevant Problems No relevant active problems Past Medical History: No past medical history on file. Past Surgical History: Past Surgical History: No date: APPENDECTOMY No date: HYSTEROSCOPY Social History: TOBACCO: reports that she has never smoked. She has never used smokeless tobacco. ETOH: has no history on file for alcohol use. Social History Substance and Sexual Activity Drug Use Not on file Family History: Family History Problem Relation Name Age of Onset ? Colon cancer Neg Hx ? Breast cancer Neg Hx ? Ovarian cancer Neg Hx Screening: unknown Clinical information reviewed: Physical Exam Airway Mallampati: unable to assess Cardiovascular Dental Pulmonary Abdominal Anesthesia Plan Any family history or previous problems with anesthesia ASA 3 general and regional (Chart info-PAT phone call CBC and T&S ordered DOS per surgeon Glucose ordered DOS ) The patient is not a current smoker. ERAS Type Short ERAS YAMILETH Screening Labs: No results found for: WBC, HGB, HCT, MCV, PLT No results found for: NA, K, CL, CO2, BUN, CREATININE, GLUCOSE, CALCIUM, PROT, BILIRUBINFL, ALKPHOS, AST, ALT, EGFR, GLOB No echocardiogram results found for the past 14 days No results found for this or any previous visit. [facility] 10-13-2022 Note HPI: Shani Elias is a pleasant 47 y.o. female who presents in consultation from Dr. Pina for further evaluation and management of abnormal uterine bleeding. She initiallypresented with complaints of heavy menstrual cycles. 4 months of vag bleeding, every day, had amenorrhea for several months then heavy bleeding. Patient states that up to about 2 years ago she had regular menstrual cycles. Then about 2 years ago had several episodes of amenorrhea followed by very heavy vaginal bleeding. She has been bleeding continuously for about 4 months. Sometimes small clots, sometimes spotting. It is associated with some cramping. Passing clots with cramping. Going thru a pad frequently Underwent biopsy in 2021 that was negative. Ultrasound showed an 11 cm uterus. Patient was unable to tolerate progesterone therapy. Patient underwent colposcopy, biopsies and endometrial curettings. ECC was negative, cervical biopsy showed mild dysplasia, endometrial biopsy showed polyps but no evidence of malignancy. 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 No past medical history on file. Mom had hyst at young age. Past Surgical History: Procedure Laterality Date APPENDECTOMY HYSTEROSCOPY Family History Problem Relation Name Age of Onset Colon cancer Neg Hx Breast cancer Neg Hx Ovarian cancer Neg Hx Social History Socioeconomic History Marital status: Unknown Tobacco Use Smoking status: Never Smokeless tobacco: Never Current Outpatient Medications Medication Sig Dispense Refill acetaminophen (Tylenol) 325 MG capsule Take by mouth. ibuprofen 600 MG tablet Take 600 mg by mouth. No current facility-administered medications for this visit. Allergies as of 10/13/2022 (No Known Allergies) Review of Systems: Review of Systems Genitourinary: Positive for menstrual problem, pelvic pain and vaginal bleeding. BP 138/84 Pulse 66 Ht 1.727 m (5' 8 ) Wt (!) 137 kg (301 lb 9.6 oz) BMI 45.86 kg/m? Physical Exam: Physical Exam Vitals and nursing note reviewed. Exam conducted with a java support engineer present. Constitutional: Appearance: She is obese. Cardiovascular: Rate and Rhythm: Normal rate and regular rhythm. Pulmonary: Effort: Pulmonary effort is normal. Breath sounds: Normal breath sounds. Abdominal: General: Abdomen is flat. Palpations: Abdomen is soft. Genitourinary: General: Normal vulva. Labia: Right: No lesion. Left: No lesion. Urethra: No urethral lesion. Vagina: Normal. Cervix: Normal. Uterus: Enlarged. Not deviated, not fixed and not tender. Adnexa: Right adnexa normal and left adnexa normal. Skin: General: Skin is warm and dry. Neurological: Mental Status: She is alert. Psychiatric: Mood and Affect: Mood normal. Behavior: Behavior normal. Several pages of reports in the EMR been reviewed to include office notes, pathology reports ultrasound reports from referring physician. ASSESSMENT/PLAN: Diagnosis Plan 1. Menorrhagia with irregular cycle 2. Morbid obesity (HCC) Unable to tolerate hormonal therapy. We did discuss options to include Mirena IUD, endometrial ablation, or hysterectomy. The patient states that the bleeding is interfering with her lifestyle and she would like a definitive treatment. It is also interfering with her ability to do her job. Discussed proceeding with robotic hysterectomy with BSO. We discussed the pros and cons of ovarian preservation. I did discuss the risk of major abdominal surgery to include bleeding infection and damage to other organs. Total time spent in review of multiple medical records coordination of care and counseling patient was 35 minutes [facility] 09-20-2022 Hospital Discharg e instructions Patient Education 09/20/2022 15:51:59 General Anesthesia, Adult, Care After General Anesthesia, Adult, Care After This sheet gives you information about how to care for yourself after your procedure. Your health care provider may also give you more specific instructions. If you have problems or questions, contact your health care provider. What can I expect after the procedure? After the procedure, the following side effects are common: Pain or discomfort at the IV site. Nausea. Vomiting. Sore throat. Trouble concentrating. Feeling cold or chills. Weak or tired. Sleepiness and fatigue. Soreness and body aches. These side effects can affect parts of the body that were not involved in surgery. Follow these instructions at home: For at least 24 hours after the procedure: Have a responsible adult stay with you. It is important to have someone help care for you until you are awake and alert. Rest as needed. Do not: ?Participate in activities in which you could fall or become injured. ?Drive. ?Use heavy machinery. ?Drink alcohol. ?Take sleeping pills or medicines that cause drowsiness. ?Make important decisions or sign legal documents. ?Take care of children on your own. Eating and drinking Follow any instructions from your health care provider about eating or drinking restrictions. When you feel hungry, start by eating small amounts of foods that are soft and easy to digest (bland), such as toast. Gradually return to your regular diet. Drink enough fluid to keep your urine pale yellow. If you vomit, rehydrate by drinking water, juice, or clear broth. General instructions If you have sleep apnea, surgery and certain medicines can increase your risk for breathing problems. Follow instructions from your health care provider about wearing your sleep device: ?Anytime you are sleeping, including during daytime naps. ?While taking prescription pain medicines, sleeping medicines, or medicines that make you drowsy. Return to your normal activities as told by your health care provider. Ask your health care provider what activities are safe for you. Take hhxf-gmi-lgfgywk and prescription medicines only as told by your health care provider. If you smoke, do not smoke without supervision. Keep all follow-up visits as told by your health care provider. This is important. Contact a health care provider if: You have nausea or vomiting that does not get better with medicine. You cannot eat or drink without vomiting. You have pain that does not get better with medicine. You are unable to pass urine. You develop a skin rash. You have a fever. You have redness around your IV site that gets worse. Get help right away if: You have difficulty breathing. You have chest pain. You have blood in your urine or stool, or you vomit blood. Summary After the procedure, it is common to have a sore throat or nausea. It is also common to feel tired. Have a responsible adult stay with you for the first 24 hours after general anesthesia. It is important to have someone help care for you until you are awake and alert. When you feel hungry, start by eating small amounts of foods that are soft and easy to digest (bland), such as toast. Gradually return to your regular diet. Drink enough fluid to keep your urine pale yellow. Return to your normal activities as told by your health care provider. Ask your health care provider what activities are safe for you. This information is not intended to replace advice given to you by your health care provider. Make sure you discuss any questions you have with your health care provider. Document Released: 08/15/2001 Document Revised: 05/12/2018 Document Reviewed: 12/23/2017 [employer] Patient Education 2020 [employer]. 09/20/2022 14:54:30 Colposcopy, Care After, Focz-fg-Asko Colposcopy, Care After This sheet gives you information about how to care for yourself after your procedure. Your doctor may also give you more specific instructions. If you have problems or questions, contact your doctor. What can I expect after the procedure? If you did not have a tissue sample removed (did not have a biopsy), you may only have some spotting for a few days. You can go back to your normal activities. If you had a tissue sample removed, it is common to have: Soreness and pain. This may last for a few days. Light-headedness. Mild bleeding from your vagina or dark-colored, grainy discharge from your vagina. This may last for a few days. You may need to wear a sanitary pad. Spotting for at least 48 hours after the procedure. Follow these instructions at home: Take xbud-lyr-jrgpsjr and prescription medicines only as told by your doctor. Ask your doctor what medicines you can start taking again. This is very important if you take blood-thinning medicine. Do not drive or use heavy machinery while taking prescription pain medicine. For 3 days, or as long as your doctor tells you, avoid: ?Douching. ?Using tampons. ?Having sex. If you use control (contraception), keep using it. Limit activity for the first day after the procedure. Ask your doctor what activities are safe for you. It is up to you to get the results of your procedure. Ask your doctor when your results will be ready. Keep all follow-up visits as told by your doctor. This is important. Contact a doctor if: You get a skin rash. Get help right away if: You are bleeding a lot from your vagina. It is a lot of bleeding if you are using more than one pad an hour for 2 hours in a row. You have clumps of blood (blood clots) coming from your vagina. You have a fever. You have chills You have pain in your lower belly (pelvic area). You have signs of infection, such as vaginal discharge that is: ?Different than usual. ?Yellow. ?Bad-smelling. You have very pain or cramps in your lower belly that do not get better with medicine. You feel light-headed. You feel dizzy. You pass out (faint). Summary If you did not have a tissue sample removed (did not have a biopsy), you may only have some spotting for a few days. You can go back to your normal activities. If you had a tissue sample removed, it is common to have mild pain and spotting for 48 hours. For 3 days, or as long as your doctor tells you, avoid douching, using tampons and having sex. Get help right away if you have bleeding, very bad pain, or signs of infection. This information is not intended to replace advice given to you by your health care provider. Make sure you discuss any questions you have with your health care provider. Document Released: 10/25/2008 Document Revised: 04/21/2018 Document Reviewed: 01/26/2017 [employer] Patient Education 2020 [employer] 09/20/2022 14:54:30 Hysteroscopy, Care After Hysteroscopy, Care After This sheet gives you information about how to care for yourself after your procedure. Your health care provider may also give you more specific instructions. If you have problems or questions, contact your health care provider. What can I expect after the procedure? After the procedure, it is common to have: Cramping. Bleeding. This can vary from light spotting to menstrual-like bleeding. Follow these instructions at home: Activity Rest for 1 2 days after the procedure. Do not douche, use tampons, or have sex for 2 weeks after the procedure, or until your health care provider approves. Do not drive for 24 hours after the procedure, or for as long as told by your health care provider. Do not drive, use heavy machinery, or drink alcohol while taking prescription pain medicines. Medicines Take fvsx-ber-hltmkig and prescription medicines only as told by your health care provider. Do not take aspirin during recovery. It can increase the risk of bleeding. General instructions Do not take baths, swim, or use a hot tub until your health care provider approves. Take showers instead of baths for 2 weeks, or for as long as told by your health care provider. To prevent or treat constipation while you are taking prescription pain medicine, your health care provider may recommend that you: ?Drink enough fluid to keep your urine clear or pale yellow. ?Take hipe-xxx-fuhtvou or prescription medicines. ?Eat foods that are high in fiber, such as fresh fruits and vegetables, whole grains, and beans. ?Limit foods that are high in fat and processed sugars, such as fried and sweet foods. Keep all follow-up visits as told by your health care provider. This is important. Contact a health care provider if: You feel dizzy or lightheaded. You feel nauseous. You have abnormal vaginal discharge. You have a rash. You have pain that does not get better with medicine. You have chills. Get help right away if: You have bleeding that is heavier than a normal menstrual period. You have a fever. You have pain or cramps that get worse. You develop new abdominal pain. You faint. You have pain in your shoulders. You have shortness of breath. Summary After the procedure, you may have cramping and some vaginal bleeding. Do not douche, use tampons, or have sex for 2 weeks after the procedure, or until your health care provider approves. Do not take baths, swim, or use a hot tub until your health care provider approves. Take showers instead of baths for 2 weeks, or for as long as told by your health care provider. Report any unusual symptoms to your health care provider. Keep all follow-up visits as told by your health care provider. This is important. This information is not intended to replace advice given to you by your health care provider. Make sure you discuss any questions you have with your health care provider. Document Released: 02/27/2014 Document Revised: 04/21/2018 Document Reviewed: 06/07/2017 [employer] Patient Education 2020 [employer]. Follow Up Care 09/15/2022 09:08:37 With:KIMBERLY PINA Address: [address] [place], [place] [id number] [phone] Business (1) When:Within 1 Week(s) [facility] 09-20-2022 Summary of episod e note Discharge Instructions Thank you for allowing [facility] to assist you with your healthcare needs. The following is important discharge information regarding your hospital visit. Your Care Team PHYSICIAN, NONE What to do next Follow Up Appointments Follow Up with KIMBERLY PINA When In 1 week Where: [address] [place] [id number] [phone] Business (1) The Following Activity and Diet Have Been Ordered for You No qualifying data available. No qualifying data available. The Following Equipment Has Been Ordered for You No qualifying data available. Allergies NKA Medications Please ask your primary doctor or pharmacist before taking any other medication not listed, including over the counter drugs, herbal medications, vitamins and or supplements as they may interact with your home medications. What How Much When Instructions Last Dose New acetaminophen (acetaminophen 325 mg oral capsule) 650 Milligram by mouth Every 6 hours Pickup at [id number] New ibuprofen (IBU 600 mg oral tablet) 1 tab(s) by mouth Every 6 hours Pickup at [facility][id number] Pharmacy Information [facility][id number]: [address] [place], [place] [id number] [phone] Please take this list to your next doctor s visit. Bring all medications you take, including over the counter medications, herbals and other supplements with you to your doctor s visit. Patients and families are reminded to discard old lists and to update any records with all medication providers or retail pharmacies. Education Materials General Anesthesia, Adult, Care After This sheet gives you information about how to care for yourself after your procedure. Your health care provider may also give you more specific instructions. If you have problems or questions, contact your health care provider. What can I expect after the procedure? After the procedure, the following side effects are common: Pain or discomfort at the IV site. Nausea. Vomiting. Sore throat. Trouble concentrating. Feeling cold or chills. Weak or tired. Sleepiness and fatigue. Soreness and body aches. These side effects can affect parts of the body that were not involved in surgery. Follow these instructions at home: For at least 24 hours after the procedure: Have a responsible adult stay with you. It is important to have someone help care for you until you are awake and alert. Rest as needed. Do not: ? Participate in activities in which you could fall or become injured. ? Drive. ? Use heavy machinery. ? Drink alcohol. ? Take sleeping pills or medicines that cause drowsiness. ? Make important decisions or sign legal documents. ? Take care of children on your own. Eating and drinking Follow any instructions from your health care provider about eating or drinking restrictions. When you feel hungry, start by eating small amounts of foods that are soft and easy to digest (bland), such as toast. Gradually return to your regular diet. Drink enough fluid to keep your urine pale yellow. If you vomit, rehydrate by drinking water, juice, or clear broth. General instructions If you have sleep apnea, surgery and certain medicines can increase your risk for breathing problems. Follow instructions from your health care provider about wearing your sleep device: ? Anytime you are sleeping, including during daytime naps. ? While taking prescription pain medicines, sleeping medicines, or medicines that make you drowsy. Return to your normal activities as told by your health care provider. Ask your health care provider what activities are safe for you. Take wutj-chz-tlczyde and prescription medicines only as told by your health care provider. If you smoke, do not smoke without supervision. Keep all follow-up visits as told by your health care provider. This is important. Contact a health care provider if: You have nausea or vomiting that does not get better with medicine. You cannot eat or drink without vomiting. You have pain that does not get better with medicine. You are unable to pass urine. You develop a skin rash. You have a fever. You have redness around your IV site that gets worse. Get help right away if: You have difficulty breathing. You have chest pain. You have blood in your urine or stool, or you vomit blood. Summary After the procedure, it is common to have a sore throat or nausea. It is also common to feel tired. Have a responsible adult stay with you for the first 24 hours after general anesthesia. It is important to have someone help care for you until you are awake and alert. When you feel hungry, start by eating small amounts of foods that are soft and easy to digest (bland), such as toast. Gradually return to your regular diet. Drink enough fluid to keep your urine pale yellow. Return to your normal activities as told by your health care provider. Ask your health care provider what activities are safe for you. This information is not intended to replace advice given to you by your health care provider. Make sure you discuss any questions you have with your health care provider. Document Released: 08/15/2001 Document Revised: 05/12/2018 Document Reviewed: 12/23/2017 [employer] Patient Education 2020 [employer]. Colposcopy, Care After This sheet gives you information about how to care for yourself after your procedure. Your doctor may also give you more specific instructions. If you have problems or questions, contact your doctor. What can I expect after the procedure? If you did not have a tissue sample removed (did not have a biopsy), you may only have some spotting for a few days. You can go back to your normal activities. If you had a tissue sample removed, it is common to have: Soreness and pain. This may last for a few days. Light-headedness. Mild bleeding from your vagina or dark-colored, grainy discharge from your vagina. This may last for a few days. You may need to wear a sanitary pad. Spotting for at least 48 hours after the procedure. Follow these instructions at home: Take djhe-ktc-ybqhiap and prescription medicines only as told by your doctor. Ask your doctor what medicines you can start taking again. This is very important if you take blood-thinning medicine. Do not drive or use heavy machinery while taking prescription pain medicine. For 3 days, or as long as your doctor tells you, avoid: ? Douching. ? Using tampons. ? Having sex. If you use control (contraception), keep using it. Limit activity for the first day after the procedure. Ask your doctor what activities are safe for you. It is up to you to get the results of your procedure. Ask your doctor when your results will be ready. Keep all follow-up visits as told by your doctor. This is important. Contact a doctor if: You get a skin rash. Get help right away if: You are bleeding a lot from your vagina. It is a lot of bleeding if you are using more than one pad an hour for 2 hours in a row. You have clumps of blood (blood clots) coming from your vagina. You have a fever. You have chills You have pain in your lower belly (pelvic area). You have signs of infection, such as vaginal discharge that is: ? Different than usual. ? Yellow. ? Bad-smelling. You have very pain or cramps in your lower belly that do not get better with medicine. You feel light-headed. You feel dizzy. You pass out (faint). Summary If you did not have a tissue sample removed (did not have a biopsy), you may only have some spotting for a few days. You can go back to your normal activities. If you had a tissue sample removed, it is common to have mild pain and spotting for 48 hours. For 3 days, or as long as your doctor tells you, avoid douching, using tampons and having sex. Get help right away if you have bleeding, very bad pain, or signs of infection. This information is not intended to replace advice given to you by your health care provider. Make sure you discuss any questions you have with your health care provider. Document Released: 10/25/2008 Document Revised: 04/21/2018 Document Reviewed: 01/26/2017 [employer] Patient Education 2020 [employer] Hysteroscopy, Care After This sheet gives you information about how to care for yourself after your procedure. Your health care provider may also give you more specific instructions. If you have problems or questions, contact your health care provider. What can I expect after the procedure? After the procedure, it is common to have: Cramping. Bleeding. This can vary from light spotting to menstrual-like bleeding. Follow these instructions at home: Activity Rest for 1 2 days after the procedure. Do not douche, use tampons, or have sex for 2 weeks after the procedure, or until your health care provider approves. Do not drive for 24 hours after the procedure, or for as long as told by your health care provider. Do not drive, use heavy machinery, or drink alcohol while taking prescription pain medicines. Medicines Take wvar-mdd-qyspgix and prescription medicines only as told by your health care provider. Do not take aspirin during recovery. It can increase the risk of bleeding. General instructions Do not take baths, swim, or use a hot tub until your health care provider approves. Take showers instead of baths for 2 weeks, or for as long as told by your health care provider. To prevent or treat constipation while you are taking prescription pain medicine, your health care provider may recommend that you: ? Drink enough fluid to keep your urine clear or pale yellow. ? Take lswe-icv-xwygtgi or prescription medicines. ? Eat foods that are high in fiber, such as fresh fruits and vegetables, whole grains, and beans. ? Limit foods that are high in fat and processed sugars, such as fried and sweet foods. Keep all follow-up visits as told by your health care provider. This is important. Contact a health care provider if: You feel dizzy or lightheaded. You feel nauseous. You have abnormal vaginal discharge. You have a rash. You have pain that does not get better with medicine. You have chills. Get help right away if: You have bleeding that is heavier than a normal menstrual period. You have a fever. You have pain or cramps that get worse. You develop new abdominal pain. You faint. You have pain in your shoulders. You have shortness of breath. Summary After the procedure, you may have cramping and some vaginal bleeding. Do not douche, use tampons, or have sex for 2 weeks after the procedure, or until your health care provider approves. Do not take baths, swim, or use a hot tub until your health care provider approves. Take showers instead of baths for 2 weeks, or for as long as told by your health care provider. Report any unusual symptoms to your health care provider. Keep all follow-up visits as told by your health care provider. This is important. This information is not intended to replace advice given to you by your health care provider. Make sure you discuss any questions you have with your health care provider. Document Released: 02/27/2014 Document Revised: 04/21/2018 Document Reviewed: 06/07/2017 [employer] Patient Education 2020 [employer]. Additional Information VACCINATE! IT SAVES LIVES! Members of the community who have not yet received the COVID-19 vaccine and would like to receive it can visit one of [facility] vaccine clinics. There are many vaccine clinic locations within the [facility]. For locations and available times, please visit [email or web address] It is important to note that some COVID mobile vaccine clinics are held outdoors and may be canceled in rainy or stormy conditions. To learn more about pediatric vaccinations (ages 5-11), we invite you to visit the [employer] webpage. [email or web address] [email or web address] To learn more about the COVID-19 vaccine, we invite you to visit the CDC website for a list of frequently asked questions. https://www.cdc.gov/coronavirus/2 019-ncov/vaccines/faq.html [employer] Patient Portal Access Instructions: Stay connected with your healthcare team and access your personal medical information anytime with the [employer] Patient Portal.If you would like a full copy of your medical records, please contact the [facility] Medical Records Department, Tuesday through Tuesday between 8a.m. and 4:30p.m. Please follow the directions below to access the portal: 1.Access the email account you provided upon registration to the [facility].2.Look for an invitation email from [facility].3.Open the email and access the invitation link: Accept Invitation to [employer]4.Fill in the required perez to create your account. Sign into www.[employer] with your username and password that you created in the above steps to stay up to date. You can then view a summary of results, a summary of your visits, and the ability to download your summaries to your computer or send the information securely to a physician. Remember that your healthcare information is confidential, so carefully consider who you will allow to register on the [employer] Patient Portal for access to your information. You can also access the [employer] Patient Portal on the [email or web address] lowell. Simply click on Health Records under Health Data and then click on the [employer] logo. HOW TO SAFELY DISPOSE OF PRESCRIPTION MEDICATIONS Please use one of the following methods to safely dispose of your unused medications. 1.Use a drug disposal kit: the drug disposal pouch allows you to safely discard your old and unused drugs. Ask your nurse to give you one when you are discharged.2.Visit a local take-back location: Many local pharmacies and police departments have programs that collect old and unwanted prescription drugs. Call your local pharmacy or go to http://[email or web address]/[email or web address] to find one close to you.3.Make use of household items: Use cat litter or old coffee grounds to dispose medications if other options are not available. Mix your drugs with these household products, seal them in an airtight container and throw it into the garbage. Call [facility]: [phone] to be sure your drugs can be disposed of in this way. Some medicines may require a different approach.4.Never flush your medications down the toilet. IF YOU HAVE BEEN PRESCRIBED AN OPIOID FOR PAIN If you have been prescribed an opioid (such as hydrocodone, oxycodone or morphine), it is critical to understand the possible side effects and risks of opioid pain medications. Even when taken as directed, opioids can have several side effects including: Tolerance, meaning you might need to take more of a medication for the same pain relief. Nausea, vomiting and/or constipation. Sleepiness, dizziness, dry mouth, confusion, depression or itching. Physical dependence, meaning you have withdrawal symptoms when a medication is stopped, can develop within a few days. KNOW YOUR RESPONSIBILITIES It is important to know exactly how much and how often to take the opioid pain medications you are prescribed. Never take opioids in higher amounts or more often than prescribed. Do not combine opioids with alcohol or other drugs that cause drowsiness, such as benzodiazepines, also known as benzos, including diazepam and alprazolam, muscle relaxants or sleep aids. Never sell or share prescription opioids. This is illegal. Store opioids in a secure place and out of reach of others (including children, family, friends and visitors). The last page of this document has been signed and retained as a CHART COPY. Signatures Patient Education Materials General Anesthesia, Adult, Care After Colposcopy, Care After, Xxcq-ve-Kwvk Hysteroscopy, Care After Medication Leaflets My discharge plan and instructions have been reviewed and explained to me and I,SHANI ELIAS understand my current condition and have read and understand these discharge instructions. I have received a written copy of the plan/instructions. If I have questions, I am aware that I should contact my doctor. 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 Future Scheduled Tests Laboratory* Pathology Tissue Request 04/27/22 * Pathology Tissue Request 05/05/22 Radiology* MA Mammo Diagnostic Bilateral w/Joe 05/13/22 * MA Mammo Diagnostic Right w/ Joe 11/18/21 * MA Mammo Screening Left w/ Joe 04/21/22 [facility] 05-01-2023 Anesthesiology Consult note Patient: SHANI ELIAS [facility]: [id number] Age: 47 years Sex: Female : 1975 Associated Diagnoses: None Author: MARINA GOODWIN APRN-TIMBER WATCHMAN Preoperative Information Time of last food or liquid consumption: 09/19/2022 21:00:00 Anesthesia history Patient's history: negative. Family's history: negative. Review of Systems Ear/Nose/Mouth/Throat: Negative except as documented in history of present illness. Respiratory: Negative except as documented in history of present illness. Cardiovascular: Negative except as documented in history of present illness. Gastrointestinal: Negative except as documented in history of present illness. Genitourinary: Negative except as documented in history of present illness. Endocrine: Negative except as documented in history of present illness. Musculoskeletal: Negative except as documented in history of present illness. Integumentary: Negative except as documented in history of present illness. Neurologic: Negative except as documented in history of present illness. Health Status Allergies: Allergic Reactions (Selected) NKA, Allergies (1) ActiveReaction NKANone Documented Current medications: (Selected) Inpatient Medications Ordered LR 1,000 mL: 20 mL/hr, Intravenous, Stop: 09/20/22 23:59:00 EDT Mefoxin: 2 gram(s), 200 mL/hr, IV Piggyback, PREOP pharm, Medications (2) Active Scheduled: (1) ceFOXitin 2 gram(s), IV Piggyback, PREOP pharm Continuous: (1) Lactated Ringers 1,000 mL 1,000 mL, Intravenous, 20 mL/hr PRN: (0) Problem list: Active Problems (1) No Chronic Problems Histories Past Medical History: No active or resolved past medical history items have been selected or recorded. Family History: Emphysema of lung Father Hypertension Father Diabetes mellitus type 2 Father COPD Father Procedure history: Appendectomy ([id number]) in 2009 at 35 Years. Tonsillectomy ([id number]). Hysteroscopy ([id number]). Social History Social & Psychosocial Habits Alcohol 10/13/2020 Use: Current Frequency: 1-2 times per month Substance Abuse 10/13/2020 Use: Never Tobacco 10/13/2020 Tobacco Use: Never (less than 100 in l Home/Environment 09/16/2022 Domestic Concerns None Living situation: Home/Independent Primary Hospital Product Specialist: Self Current Home Treatments None Special Services and Community Resources None Spouse Name Jules Marital Status of Patient if Patient Independent Adult: Nutrition/Health 09/16/2022 Type of diet: Regular Appetite Good Eating Difficulties None . Physical Examination Vital Signs 09/20/2022 11:29 EDT Temperature Temporal Artery 36.9 DegC Apical Heart Rate 87 bpm Respiratory Rate 17 br/min Systolic Blood Pressure Non-Invasive 136 mmHg Diastolic Blood Pressure Non-Invasive 73 mmHg Blood Pressure Method Automatic Blood Pressure Location Left arm Blood Pressure Cuff Size Large Vital Signs(last 24 hrs) Last Charted Resp Rate 17 br/min (SEPTEMBER 20:) LNW106 mmHg (SEPTEMBER 20 11:) DBP73 mmHg (SEPTEMBER 20:) BMI41.14 (SEPTEMBER 20:29) Measurements from flowsheet : Measurements 09/20/2022 11:29 EDT Height 172.7 cm Admission Weight 122.7 kg Weight Method Stated Stitzer Body Weight 63.88 kg Body Mass Index 41.14 kg/m2 Body Mass Index 41.14 kg/m2 Pain assessment: Pain Assessment 09/20/2022 11:29 EDT Primary Pain Intensity 0 Pain Scale Type 0-10 Pain scale . General: Alert and oriented. Airway: Normal neck range of motion. Mallampati classification: II (soft palate, fauces, uvula visible). Head: Normocephalic. Dentition Evaluation: Intact, Own teeth. Neck: Full range of motion. Respiratory: Lungs are clear to auscultation. Cardiovascular: Normal rate. Heart Sounds: Normal. Gastrointestinal: Soft. Musculoskeletal Normal range of motion. Integumentary: Intact, Warm, Dry. Neurologic: Alert, Oriented. Review / Management Results review: No qualifying data available , Lab results 09/20/2022 13:32 EDT SN - CAt - Case Attendee SN - CAt - Case Attendee SN - CAt - Case Attendee SN - CAt - Case Attendee SN - CAt - Case Attendee SN - CAt - Case Attendee SN - CAt - Case Attendee SN - CAt - Case Attendee SN - CAt - Case Attendee SN - CAt - Case Attendee SN - CAt - Role Performed Primary Surgeon SN - CAt - Role Performed Color Making Supervisor 1 SN - CAt - Role Performed Scrub 1 SN - CAt - Role Performed Engineer Soils 1 SN - CAt - Role Performed TIMBER WATCHMAN 09/20/2022 12:22 EDT Colony History and Physical 09/20/2022 11:49 EDT SN - Preop - CTm Pt in SDS Room 09/20/2022 11:25 09/20/2022 11:48 EDT SN - Preop - CTm Pt Ready for OR/Proced 09/20/2022 11:48 09/20/2022 11:44 EDT Lactated Ringers Injection Begin Bag 1,000 mL mL 09/20/2022 11:43 EDT IV Present Present Wrist Left 09/20/2022 20 gauge Peripheral IV Activity: Insert new site Peripheral IV Dressing Condition: Clean, Dry, Intact Peripheral IV Dressing Activity: Applied, Transparent dressing Peripheral IV Line Status/Patency: Flushes easily, Continuous infusion Peripheral IV Site Condition: No complications Peripheral IV Equipment: Extension set, PRN Adaptor 09/20/2022 11:29 EDT Designated Person #1 We May Share PHI Reji Elias [phone] Designated Person #1 Relationship Spouse Privacy Restrictions Requested None Height 172.7 cm Admission Weight 122.7 kg Weight Method Stated Stitzer Body Weight 63.88 kg Body Mass Index 41.14 kg/m2 Body Mass Index 41.14 kg/m2 Temperature Temporal Artery 36.9 DegC Apical Heart Rate 87 bpm Respiratory Rate 17 br/min Systolic Blood Pressure Non-Invasive 136 mmHg Diastolic Blood Pressure Non-Invasive 73 mmHg Blood Pressure Method Automatic Blood Pressure Location Left arm Blood Pressure Cuff Size Large Primary Pain Intensity 0 Pain Scale Type 0-10 Pain scale Oxygen Saturation 96 % Abdomen Description Non-distended Abdomen Palpation Non-Tender Urinary Elimination Voiding, no difficulties Status No, per patient Skin Temperature Warm Skin Description [place], Dry Skin Integrity Intact Neurological Symptoms Patient denies Extremity Movement Equal Characteristics of Speech Clear Level of Consciousness Alert Strength All Extremities Strong Tone All Extremities Normal Sensation All Extremities Intact Affect/Behavior Appropriate Orientation Oriented x 4 Sensory Deficits None Sleep Apnea Snore Yes Sleep Apnea Tired Yes Sleep Apnea Obstruction No Sleep Apnea Pressure No Sleep Apnea BMI Yes Sleep Apnea Age No Sleep Apnea Neck No Sleep Apnea Gender No Sleep Apnea Score 3 High Risk for Sleep Apnea No Diagnosed With Sleep Apnea No Advanced Directives No - refuses information Infectious Disease Symptoms Patient states no symptoms Infectious Disease Recent Exposure No Alcohol and Drug Use No Employee of Institutional Living No Health Care Employee No History of Exposure to TB No History of Positive Chest X-Ray for TB No History of Positive TB Skin Test No Homeless No Known Immunosuppression No Recent Immigrant No Resident of Institutional Living No Bloody Sputum No Fatigue No Fever No Loss of Appetite No Night Sweats No Persistent Cough > 3 Weeks No Weight Loss No Allergies No 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 Pina, level vial inspector and tester Discharge To, Anticipated Home independently Activity Status ADL Awake SCD On/Re-applied bilateral knee high NPO Status Maintained Standard Safety ID band on, Call device within reach, Bed in low position, Wheels locked, Upper/Half-Length side-rails up, Safety level maintained Prev Test Positive/Diagnosis w/COVID-19 No Current Quarantine/Isolated any Illness No Any Contact with Sick Animals/Birds No Traveled Anywhere in Last 30 Days No Allergy Band on and Verified No Patient ID Band on and Verified Yes Implants Verified Yes Pacemaker/AICD Verified Yes Blood Consent Signed Yes Last Fluid Intake 09/19/2022 22:30 Last Food Intake 09/19/2022 18:00 Last Void 09/20/2022 11:25 Lost Weight Unintentionally Recently No Eat Poorly Due to Decreased Appetite No Total MST Score 0 No Personal Devices, Patient Valuables None Anesthesia/Transfusions Prior anesthesia Admission Note-Nursing Same Day Patient History 09/20/2022 11:27 EDT Test Urine Negative test (u) int test (u) int QC PRGUN Negative QC PRGUP Positive . Assessment and Plan [place] [employer] (ASA) physical status classification: Class II. Anesthetic Preoperative Plan Premedication: intravenous. Anesthetic technique: General. Induction: intravenously. Maintenance airway: Laryngeal mask airway. Postoperative pain management: Per surgeon. Risks discussed: nausea, vomiting, headache, sore throat, dental injury, hypotension, allergic reaction, serious complications. Informed consent: signed by patient. Digitally Signed by MARINA GOODWINTIMBER WATCHMAN on 09/20/2022 01:34 PM [facility]05-01-2023 Note History and Physical Update I have examined the patient; reviewed the H&P and there are no changes to the H&P unless noted below. Digitally Signed by KIMBERLY PINA MD on 09/20/2022 12:23 PM [facility]12-06-2022 Evaluation + Plan note Future Appointments Future Scheduled Tests Laboratory* Pathology Tissue Request 04/27/22 * Pathology Tissue Request 05/05/22 Radiology* MA Mammo Diagnostic Bilateral w/Joe 05/13/22 * MA Mammo Diagnostic Right w/ Joe 11/18/21 * MA Mammo Screening Left w/ Joe 04/21/22 [facility] 12-05-2022 Note ORIGINAL HISTORY: Bleeding during intercourse COMPARISON: No FINDINGS: The uterus measures 11.1 cm in length. There is an 11 mm endometrial stripe. There are nabothian cysts. The ovaries are unremarkable in appearance, with normal blood flow. There is no free fluid. IMPRESSION: Other than a few nabothian cysts, unremarkable examination. Interpreted by: Manjeet Amaya MD Preliminary Report By: Manjeet Amaya MD Electronically signed By Manjeet Amaya MD Dictated Date: 04/26/2022 2:35:28 PM Prelim Date: 04/26/2022 2:36:29 PM Sign Date: 04/26/2022 2:36:29 PM Ordering Provider: [facility]12-05-2022 Note ORIGINAL HISTORY: Bleeding during intercourse COMPARISON: No FINDINGS: The uterus measures 11.1 cm in length. There is an 11 mm endometrial stripe. There are nabothian cysts. The ovaries are unremarkable in appearance, with normal blood flow. There is no free fluid. IMPRESSION: Other than a few nabothian cysts, unremarkable examination. Interpreted by: Manjeet Amaya MD Preliminary Report By: Manjeet Amaya MD Electronically signed By Manjeet Amaya MD Dictated Date: 04/26/2022 2:35:28 PM Prelim Date: 04/26/2022 2:36:29 PM Sign Date: 04/26/2022 2:36:29 PM Ordering Provider: [facility]03-04-2022 Note HNO ID: [id number] Author: Camelia Mccoy APRN.LOAN CLERK Service: ? Author Type: Nurse Practitioner Type: Progress Notes Filed: 07/24/2021 12:02 PM Note Text: This note was created using [employer]. Subjective Shani Elias is a 46 year old female. HPI 46 yr old female is online for c/o sinus pressure and pain this week. Her symptoms started with a cold that she caught from her , then it turned into nasal and sinus congestion and pain, cough and headache with yellow green secretions.Her left ear hurts yesterday when she blew her nose. She took multiple rapid COVID-19 tests which were all negative. Review of Systems Has cough, headache, nasal and sinus congestion and sinus pain Denies fever, body aches, chest pain and shortness of breath Objective LMP 07/13/2010 Physical Exam Alert and oriented female in no acute distress She is audibly nasally congested No ear pain or neck pain with self palpation Has maxillary sinus tenderness. OP: normal mucosa Breath sounds clear with breathing Assessment and Plan Sinusitis Nasal congestion Sinus pain Take Augmentin as directed Drink plenty of fluids Take Sudafed 30mg daily Use Nasacort AQ 2 sprays in each nostril daily Follow up with your [facility] No data available for this section [facility] Evaluation + Plan note Future Appointments Appointment Date:04/27/2022 04:15:00 PM Scheduled Provider:KIMBERLY PINA MD Location: [facility] Appointment Type: Office Procedure Appointment Date:05/13/2022 10:30:00 AM Scheduled Provider: Location:[facility] Appointment Type:[facility] Mammogram Diagnostic Bilateral w/ Donald Future Scheduled Tests Laboratory* Thyroid Stimulating Hormone 04/21/22 * Glucose Level 04/21/22 * Lipid Profile 04/21/22 Radiology* MA Mammo Diagnostic Bilateral w/Joe 05/13/22 * MA Mammo Diagnostic Right w/ Joe 11/18/21 * MA Mammo Screening Left w/ Joe 04/21/22 [facility] Evaluation + Plan note Future Appointments Appointment Date:05/13/2022 10:30:00 AM Scheduled Provider: Location:[facility] Appointment Type:[facility] Mammogram Diagnostic Bilateral w/ Donald Future Scheduled Tests Laboratory* Pathology Tissue Request 04/27/22 Radiology* MA Mammo Diagnostic Bilateral w/Joe 05/13/22 * MA Mammo Diagnostic Right w/ Joe 11/18/21 * MA Mammo Screening Left w/ Joe 04/21/22 [facility] Evaluation note* Diagnosis Menorrhagia with irregular cycle- Primary Excessive and frequent menstruation with irregular cycle Excessive or frequent menstruation Post-op pain Other acute postoperative pain documented in this encounter [facility] note* Diagnosis Post-operative state- Primary Other postprocedural status documented in this encounter [facility] note* Diagnosis BV (bacterial vaginosis)- Primary Unspecified vaginitis and vulvovaginitis [facility] No data available for this section [facility] Progress note No data available for this section [facility] Summary Purpose Family History No Family History Records FoundNo Family History Records FoundNo Family History Records Found Advance Directives No Advanced Directives Records FoundLatest Code Status on File Code Status Date Activated Date Inactivated Comments Full Code 01/06/2023 10:14 AM 01/06/2023 7:10 PM Latest Code Status on File Code Status Date Activated Date Inactivated Comments Full Code 01/06/2023 10:14 AM 01/06/2023 7:10 PM Additional Source Comments INFORMATION SOURCE (unrecogn ized section and content) DATE CREATED AUTHOR AUTHOR'S ORGANIZ ATION 10/05/2022 [facility] ([place]) DATE CREATED AUTHOR AUTHOR'S ORGANIZ ATION 03/30/2023 [facility] Care Team (unrecognized sect ion and content) Care Team Personnel Name: PHYSICIAN, NONE Position: Physician Member Role: Primary Care Physician Care Team Related Persons Name: ALEXA JONES Address: Home [address] [place], [place] [id number] [place] Name: REJI ELIAS Care Team Personnel Name: PHYSICIAN, NONE Position: Physician Member Role: Primary Care Physician Care Team Related Persons Name: ALEXA JONES Address: Home [address] [place], [place] [id number] [place] Name: REJI ELIAS Patient Care team informatio n (unrecognized section and content) Chemical Test Engineer Relationship Specialty Start Date End Date [facility] [address] [place] [address] PCP - General 12/31/22 Anuel Mcgovern MD [address] [place] [address] Consulting Physician Gynecologic Oncology 10/13/22 Kelsey Rivas APRN - LOAN CLERK [address] [facility] [address] [place] [address] Nurse Practitioner Nurse Practitioner 01/11/23 Kylah Berg CREW CLERK - LOAN CLERK [address] [facility] [address] [place] [address] Nurse Practitioner Certified Nurse Practitioner 01/19/23 Chemical Test Engineer Relationship Specialty Start Date End Date [facility] [address] [place] [address] PCP - General 12/31/22 Anuel Mcgovern MD [address] [place] [address] Consulting Physician Gynecologic Oncology 10/13/22 Kelsey Rivas CREW CLERK - LOAN CLERK [address] [facility] [address] [place] [address] Nurse Practitioner Nurse Practitioner 01/11/23 Kylah Berg, CREW CLERK - LOAN CLERK [address] [facility] [address] [place] [address] Nurse Practitioner Certified Nurse Practitioner 01/19/23 Chemical Test Engineer Relationship Specialty Start Date End Date [facility] [address] [place] [address] PCP - General 12/31/22 Anuel Mcgovern MD [address] [place] [address] Consulting Physician Gynecologic Oncology 10/13/22 Kelsey Rivas APRN - LOAN CLERK [address] [place] [address] Nurse Practitioner Nurse Practitioner 01/11/23 Kylah Berg APRN - LOAN CLERK [address] [facility] [address] [place], [place] [id number] Nurse Practitioner Certified Nurse Practitioner 01/19/23 Chemical Test Engineer Relationship Specialty Start Date End Date [facility] [address] [place] [address] PCP - General 12/31/22 Anuel Mcgovern MD [address] [facility] [place] [address] Consulting Physician Gynecologic Oncology 10/13/22 Kelsey Rivas APRN - LOAN CLERK [address] [facility] [address] [place] [address] Nurse Practitioner Nurse Practitioner 01/11/23 Kylah Berg, CREW CLERK - LOAN CLERK [address] [facility] [address] [place], [place] [id number] Nurse Practitioner Certified Nurse Practitioner 01/19/23 Reason for Visit (unrecogniz ed section and content) Referral ID Status Reason Start Date Expiration Date Visits Re quested Visits Authorized [id number] 1 Reason Comments Post-op Visit 2 weeks post op, sli ght discomfort when twisting Scheduled Active and Recently Administ ered Medications (unrecognized section and content) Continuous Medication Order 01/04/2023 01/05/2023 01/06/2023 lactated Ringer's (LR) infusion 50 mL/hr, IntraVENous, Continuous, Starting on Angela 01/06/23 at 1015, Preprocedure, Upon admission to sameday - please start iv if patient does not have iv access. Use 500ml NS for patients on dialysis. 1031 (New Bag - Prov ider: Nabila Smiley RN)1208 (Continued by Anesthesia - Provider: Caden Darnell CRNA)1311 (Stopped - Provider: Caden Darnell CRNA) lactated ringers infusion 125 mL/hr, IntraVENous, Continuous, Starting on Angela 01/06/23 at 1345, Recovery (only) 1345 (Canceled Entry - Provider: Automatic Discharge Provider - Comment: Automatically canceled at discontinue of medication order) PRN Medication Order 01/04/2023 01/05/2023 01/06/2023 ALPRAZolam (Xanax) disintegrating tablet 0.25 mg (COMPLETED) 0.25 mg, Oral, PRN, anxiety, Starting on Angela 01/06/23 at 1014, For 1 dose, Preprocedure, Using dry hands, place tablet on top of tongue and allow to disintegrate. Administration with water is not necessary. 1036 (Given - Provid er: Nabila Smiley RN) diphenhydrAMINE (BENADryl) injection 12.5 mg 12.5 mg, IntraVENous, Once PRN, itching, Starting on Angela 01/06/23 at 1338, For 1 dose, Recovery (only) fentaNYL (Sublimaze) injection 25 mcg 25 mcg, IntraVENous, Every 5 min PRN, moderate pain (4-6), Starting on Angela 01/06/23 at 1348, For 3 doses, Recovery (only), Phase I and Phase II- Initial therapy for moderate pain (4-6). Restricted to a 90 minute time frame starting when the patient can verbally state their pain score. If after 2 doses the pain score does not decrease by more than one point, then call the provider. If oral meds are utilized, do not return to initial therapy medications. fentaNYL (Sublimaze) injection 50 mcg 50 mcg, IntraVENous, Every 5 min PRN, severe pain (7-10), Starting on Angela 01/06/23 at 1348, For 3 doses, Recovery (only), Phase I and Phase II- Initial therapy for severe pain (7-10). Restricted to a 90 minute time frame starting when the patient can verbally state their pain score. If after 2 doses the pain score does not decrease by more than one point, then call the provider. If oral meds are utilized, do not return to initial therapy medications. 1354 (Given - Provid er: Sindhu Gonzalez RN) hydrALAZINE (Apresoline) injection 5 mg(Linked Group 1) 5 mg, IntraVENous, Every 15 min PRN, high blood pressure, for SBP greater than 160 mmHg for 2 consecutive measurements taken from different sites, Starting on Angela 01/06/23 at 1338, For 2 doses, Recovery (only), PRN for SBP > 160 for 2 consecutive measurements, and if one of the following conditions is met: 1) If IV labetolol is ineffective. 2) If HR is under 60. 3) If patient has heart block, COPD or asthma. If both labetalol and hydralazine ineffective, notify anesthesia provider. labetalol (Normodyne,Trandate) injection 5 mg(Linked Group 1) 5 mg, IntraVENous, Every 10 min PRN, high blood pressure, for SBP greater than 160 mmHg for 2 consecutive measurements taken from different sites., Starting on Angela 01/06/23 at 1338, For 2 doses, Recovery (only), PRN for SBP >160 for 2 consecutive measurements, if HR is 60 or greater. If beta flor is contraindicated (HR less than 60, heart block, COPD or asthma) use hydralazine IV order. LORazepam (Ativan) injection 0.5 mg 0.5 mg, IntraVENous, Once PRN, for anxiety or muscle spasm., Starting on Angela 01/06/23 at 1338, For 1 dose, Recovery (only), For IV doses dilute dose with 1ml NS. meperidine (Demerol) injection 12.5 mg 12.5 mg, IntraVENous, Every 5 min PRN, shivering, Starting on Angela 01/06/23 at 1338, For 4 doses, Recovery (only), May give every 5 minutes to max of 50mg. ondansetron (Zofran) injection 4 mg 4 mg, IntraVENous, Once PRN, nausea, Starting on Angela 01/06/23 at 1338, For 1 dose, Recovery (only), Initial antiemetic therapy. oxyCODONE (Roxicodone) immediate release tablet 10 mg (COMPLETED) 10 mg, Oral, PRN, severe pain (7-10), Starting on Angela 01/06/23 at 1338, For 1 dose, Recovery (only), PHASE II 1441 (Given - Provid er: Sindhu Gonzalez RN) sodium chloride 0.9 % bolus 500 mL 500 mL, IntraVENous, at 1,000 mL/hr, Administer over 0.5 Hours, PRN, Anti-nausea, Starting on Angela 01/06/23 at 1338, Recovery (only), Indications: Anti-nausea sodium chloride 0.9 % infusion 5-250 mL/hr, IntraVENous, PRN, if patient receiving piggyback infusions and maintenance fluids are not ordered OR KVO fluids to protect IV site / prevent frequent line interruptions / long duration, Starting on Angela 01/06/23 at 1014, Preprocedure, For piggyback infusion, administer at same rate as piggyback for a total of 25 mL. Enter 25 mL into dose field and piggyback rate into rate field of order. If piggyback is infusing at a rate less than 100 mL/hr, enter 25 mL into dose field and 100 mL/hr into rate field of order. For KVO fluids, enter rate of 20 mL/hr or less into rate field of order. sodium chloride 0.9 % infusion 5-250 mL/hr, IntraVENous, PRN, if patient receiving piggyback infusions and maintenance fluids are not ordered OR KVO fluids to protect IV site / prevent frequent line interruptions/ long duration, Starting on Angela 01/06/23 at 1338, Recovery (only), For piggyback infusion, administer at same rate as piggyback for a total of 25 mL. Enter 25 mL into dose field and piggyback rate into rate field of order. If piggyback is infusing at a rate less than 100 mL/hr, enter 25 mL into dose field and 100 mL/hr into rate field of order. For KVO fluids, enter rate of 20 mL/hr or less into rate field of order. sodium chloride 0.9% (NS) flush 10 mL 10 mL, IntraVENous, PRN, line care, Starting on Angela 01/06/23 at 1338, Recovery (only), After every IV line use sodium chloride 0.9% (NS) flush 5-40 mL 5-40 mL, IntraVENous, PRN, line care, After every IV line use, Starting on Angela 01/06/23 at 1014, Preprocedure, For Line Patency: Peripheral IV = 5 mL; Midline or Central Line = 10 mL/lumen. If following IV push medication, administer flush at same rate as the IV push. Flush volume is determined by type of infusion therapy being given. For non-viscous solutions use: Peripheral IV = 5 mL Midline or Central Line = 10 mL/lumen For viscous solutions (i.e. blood components, parenteral nutrition, contrast media, or after obtaining blood sample) use: Peripheral IV = 10 mL Midline or Central Line = 20 mL/lumen Linked Groups Order Group 1: labetalol (Normodyne,Trandate) injection 5 mgJump to med 5 mg, IntraVENous, Every 10 min PRN, high blood pressure, for SBP greater than 160 mmHg for 2 consecutive measurements taken from different sites., Starting on Angela 01/06/23 at 1338, For 2 doses, Recovery (only)
PRN for SBP >160 for 2 consecutive measurements, if HR is 60 or greater. If beta flor is contraindicated (HR less than 60, heart block, COPD or asthma) use hydralazine IV order.
Or hydrALAZINE (Apresoline) injection 5 mgJump to med 5 mg, IntraVENous, Every 15 min PRN, high blood pressure, for SBP greater than 160 mmHg for 2 consecutive measurements taken from different sites, Starting on Angela 01/06/23 at 1338, For 2 doses, Recovery (only)
PRN for SBP > 160 for 2 consecutive measurements, and if one of the following conditions is met: 1) If IV labetolol is ineffective. 2) If HR is under 60. 3) If patient has heart block, COPD or asthma. If both labetalol and hydralazine ineffective, notify anesthesia provider.
FOR RECORDS PERTAINING TO PATIENTS WHO ARE OR HAVE BEEN ENROLLED IN A CHEMICAL DEPENDENCY/SUBSTANCEABUSE PROGRAM, SOME INFORMATION MAY BE OMITTED. This clinical summary was aggregated from multiple sources. Caution should be exercised in using it in the provision of clinical care. This summary normalizes information from multiple sources, and as a consequence, information in this document may materially change the coding, format and clinical context of patient data. In addition, data may be omitted in some cases. CLINICAL DECISIONS SHOULD BE BASED ON THE PRIMARY CLINICAL RECORDS. [employer] [facility]. provides no warranty or guarantee of the accuracy or completeness of information in this document.
[2023-06-30 13:23] LABS: Anion Gap 5 (5-15); BUN 12 mg/dL (7-18); BUN/Creat Ratio 18.9 RATIO (10-20); Calcium,Total 9.6 mg/dL (8.5-10.1); Chloride 106 mmol/L (98-107); Cholesterol 220 mg/dL (200); Creatinine, Serum 0.64 mg/dL (0.55-1.02); EST Glomerular Filtration Rate 107 mL/min (>60); Est Glom Filt Rate - Afr Amer 129 mL/min (>60); Glucose 109 mg/dL (74-106); High Density Lipoprotein 38 mg/dL; Potassium 3.9 mmol/L (3.5-5.1); Sodium Level 137 mmol/L (136-145); Thyroid Stim Hormone (TSH) 1.95 uIU/mL (0.358-3.74); Triglycerides 163 mg/dL; Very Low Density Lipoprotein 33 mg/dL (5-40)
== END | disposition home or self-care (01) ==
LOC: MFPLAB 10:45
PROVIDERS: PCP Family Medicine; Visit Provider Family Medicine
DX: Z00.00 Encounter for general adult medical examination without abnormal findings (principal); E66.9 Obesity, unspecified
CPT/HCPCS: 36415; 80048; 80061; 82306; 84443

== ENCOUNTER → 2023-10-19 | Outpatient (CLI) | payer BC, SELFPAY ==
[2023-10-19 15:22] LABS: Absolute Lymphocyte Count 2.14 X10^3/uL (0.83-4.51); Absolute Neutrophil Count 4.1 X10^3/uL (2.0-7.7); Basophil# 0.02 X10^3/uL; Basophil% 0.3 % (0-1); Eosinophil# 0.12 X10^3/uL; Eosinophils% 1.8 % (0-5); Hematocrit 42.8 % (37-47); Hemoglobin 13.3 g/dL (12.0-15.0); Lymphocyte # 2.14 X10^3/ul (0.83-4.51); Lymphocyte % 31.8 % (19-41); Mean Corp Hgb Conc 31.1 g/dL (32-36); Mean Corpuscular Hgb 27.7 pg (27.0-32.0); Mean Platelet Vol. 12.9 fl (6.2-12.0); Monocyte# 0.34 X10^3/uL; Monocyte% 5.1 % (0-10); NRBC Flagged by Analyzer 0 % (0-5); Neutrophil # 4.06 X10^3/uL (2.7-7.7); Neutrophil % 60.3 % (47-70); Platelet Count 182 K/mm3 (150-450); RBC Distribution Width CV 13.3 % (11.6-14.6); RBC Distribution Width SD 43.1 fl (35.1-43.9); Red Blood Count 4.81 M/mm3 (4.2-5.4); White Blood Count 6.7 K/mm3 (4.4-11.0)
[2023-10-19 16:23] LABS: Anion Gap 7 (5-15); BUN 9 mg/dL (7-18); BUN/Creat Ratio 11.8 RATIO (10-20); Calcium,Total 9.3 mg/dL (8.5-10.1); Chloride 108 mmol/L (98-107); Cholesterol 221 mg/dL (200); Creatinine, Serum 0.76 mg/dL (0.55-1.02); EST Glomerular Filtration Rate 86 mL/min (>60); Est Glom Filt Rate - Afr Amer 105 mL/min (>60); Glucose 103 mg/dL (74-106); High Density Lipoprotein 43 mg/dL; Potassium 3.9 mmol/L (3.5-5.1); Sodium Level 140 mmol/L (136-145); Thyroid Stim Hormone (TSH) 2.65 uIU/mL (0.358-3.74); Triglycerides 161 mg/dL; Very Low Density Lipoprotein 32 mg/dL (5-40)
== END | disposition home or self-care (01) ==
LOC: MFPLAB 11:26
PROVIDERS: PCP Family Medicine; Visit Provider Family Medicine
DX: R53.83 Other fatigue (principal); E66.9 Obesity, unspecified
CPT/HCPCS: 36415; 80048; 80061; 84443; 85025